=== PATIENT | male | born 1955 | race American Indian/Alaskan Native ===

== ENCOUNTER 2017-06-26 06:57 | Emergency (ER) | payer MEDICAID ==
[2017-06-26 07:03] VITALS: BP 148/96
[2017-06-26] MEDS ORDERED: ULTRAM PO ONE (08:23)
[2017-06-26] MEDS ORDERED: MOTRIN PO ONE (08:23)
--- NOTE | 2017-06-26 08:29 | Emergency Department Report ---
ED Fall HPI - General Chief Complaint: Fall Stated Complaint: FALL Time Seen by Provider: 06/26/17 08:16 Source: patient Mode of arrival: Ambulatory - History of Present Illness Initial Comments: This is a 61-year-old male nontoxic, well nourished in appearance, no acute signs of distress presents to the ED with c/o of right lateral side rib pain status post fall. Patient stated he cannot shower and tripped and landed on his right rib region against the toilet. Patient denies any loss of consciousness or head injuries. Patient denies any chest pain, shortness of breath, fever, chills, nausea, vomiting, headache or stiff neck. Patient denies any numbness or tingling. Patient stated it hurts when he takes a deep breath. Patient states allergies to penicillin with past medical history of hypertension and kidney stones. MD Complaint: fall -: Last night Fall From: standing When Fall Occurred: # days [employer] (1) Fall Witnessed: no Place Fall Occurred: home Loss of Consciousness: none Prolonged Down Time?: no Symptoms Prior to Fall: none Location: chest (right rib region) Severity: mild Severity scale (0 -10): 8 Quality: aching Context: tripped/slipped Associated Symptoms: denies. denies: headache, neck pain, numbness, weakness, chest paint, shortness of breath, abdominal pain, hematuria, unable to walk, lightheaded, vertigo, confusion - Related Data Home Medications Medication Instructions Recorded Confirmed Last Taken amLODIPine [Norvasc] 10 mg PO DAILY 09/30/14 10/01/14 09/30/14 ALPRAZolam [Xanax TAB] 0.5 mg PO BID PRN 10/01/14 10/01/14 09/30/14 HYDROcodone/APAP 10-325 [[place] 1 tab PO PRN PRN 10/01/14 10/01/14 09/30/14 10-325 mg TAB] Losartan/Hydrochlorothiazide 1 tab PO DAILY 10/01/14 10/01/14 09/30/14 [Hyzaar 100-25 TAB] Previous Rx's Medication Instructions Recorded Last Taken Type Albuterol Sulfate [Ventolin HFA] 2 puff IH Q4H PRN #1 hfa.aer.ad 11/22/14 Unknown Rx Azithromycin [Zithromax Z-SHY] 500 mg PO DAILY #1 pkg 11/22/14 Unknown Rx Fluticasone [Flonase] 2 spray NS QDAY #1 bottle 11/22/14 Unknown Rx Promethazine /Codeine 5 ml PO Q6H PRN #150 ml 11/22/14 Unknown Rx [Phenergan/Codeine 6.25-10 mg/5 ml] predniSONE [Deltasone] 20 mg PO QDAY #5 tab 11/22/14 Unknown Rx Acetaminophen/Codeine [Tylenol #3] 1 tab PO Q6H PRN #14 tab 08/25/15 Unknown Rx Cyclobenzaprine [Flexeril] 10 mg PO TID PRN #20 tablet 08/25/15 Unknown Rx Ibuprofen [Motrin] 800 mg PO Q8HR PRN #30 tablet 08/25/15 Unknown Rx Ibuprofen [Motrin] 600 mg PO Q8H PRN #30 tablet 06/26/17 Unknown Rx traMADol [Ultram] 50 mg PO Q6HR PRN #15 tablet 06/26/17 Unknown Rx Allergies Allergy/AdvReac Type Severity Reaction Status Date / Time Penicillins Allergy Hives Verified 10/29/13 14:20 ED Review of Systems ROS: Stated complaint: FALL Other details as noted in HPI Constitutional: denies: chills, fever Eyes: denies: eye pain, eye discharge, vision change ENT: denies: ear pain, throat pain Respiratory: denies: cough, shortness of breath, wheezing Cardiovascular: denies: chest pain, palpitations Endocrine: no symptoms reported Gastrointestinal: denies: abdominal pain, nausea, diarrhea Genitourinary: denies: urgency, dysuria Musculoskeletal: denies: back pain, joint swelling, arthralgia Skin: denies: rash, lesions Neurological: denies: headache, weakness, paresthesias Psychiatric: denies: anxiety, depression Hematological/Lymphatic: denies: easy bleeding, easy bruising ED Past Medical Hx - Past Medical History Previous Medical History?: Yes Hx Hypertension: Yes Hx GERD: No Hx Sickle Cell Disease: No Hx Arthritis: Yes Hx Kidney Stones: Yes Hx Asthma: No Hx HIV: No - Surgical History Past Surgical History?: No Additional Surgical History: Deteriorating disc surgery, Left shoulder surgery, Left knee replacement. - Social History Smoking Status: Never Smoker Substance Use Type: None - Medications Home Medications: Home Medications Medication Instructions Recorded Confirmed Last Taken Type amLODIPine [Norvasc] 10 mg PO DAILY 09/30/14 10/01/14 09/30/14 History ALPRAZolam [Xanax TAB] 0.5 mg PO BID PRN 10/01/14 10/01/14 09/30/14 History HYDROcodone/APAP 10-325 [[place] 1 tab PO PRN PRN 10/01/14 10/01/14 09/30/14 History 10-325 mg TAB] Losartan/Hydrochlorothiazide 1 tab PO DAILY 10/01/14 10/01/14 09/30/14 History [Hyzaar 100-25 TAB] Albuterol Sulfate [Ventolin HFA] 2 puff IH Q4H PRN #1 hfa.aer.ad 11/22/14 Unknown Rx Azithromycin [Zithromax Z-SHY] 500 mg PO DAILY #1 pkg 11/22/14 Unknown Rx Fluticasone [Flonase] 2 spray NS QDAY #1 bottle 11/22/14 Unknown Rx Promethazine /Codeine 5 ml PO Q6H PRN #150 ml 11/22/14 Unknown Rx [Phenergan/Codeine 6.25-10 mg/5 ml] predniSONE [Deltasone] 20 mg PO QDAY #5 tab 11/22/14 Unknown Rx Acetaminophen/Codeine [Tylenol #3] 1 tab PO Q6H PRN #14 tab 08/25/15 Unknown Rx Cyclobenzaprine [Flexeril] 10 mg PO TID PRN #20 tablet 08/25/15 Unknown Rx Ibuprofen [Motrin] 800 mg PO Q8HR PRN #30 tablet 08/25/15 Unknown Rx Ibuprofen [Motrin] 600 mg PO Q8H PRN #30 tablet 06/26/17 Unknown Rx traMADol [Ultram] 50 mg PO Q6HR PRN #15 tablet 06/26/17 Unknown Rx ED Physical Exam - General Limitations: No Limitations General appearance: alert, in no apparent distress - Head Head exam: Present: atraumatic, normocephalic - Eye Eye exam: Present: normal appearance Pupils: Present: normal accommodation - ENT ENT exam: Present: normal exam, mucous membranes moist - Neck Neck exam: Present: normal inspection, full ROM. Absent: tenderness, meningismus, lymphadenopathy, thyromegaly - Respiratory Respiratory exam: Present: normal lung sounds bilaterally, chest wall tenderness (right lateral rib region). Absent: respiratory distress, wheezes, rales, rhonchi, stridor, accessory muscle use, decreased breath sounds, prolonged expiratory - Cardiovascular Cardiovascular Exam: Present: regular rate, normal rhythm, normal heart sounds. Absent: irregular rhythm, systolic murmur, diastolic murmur, rubs, gallop - GI/Abdominal GI/Abdominal exam: Present: soft, normal bowel sounds. Absent: distended, tenderness, guarding, rebound, rigid, diminished bowel sounds - Rectal Rectal exam: Present: deferred - Extremities Exam Extremities exam: Present: normal inspection, full ROM, normal capillary refill - Back Exam Back exam: Present: normal inspection, full ROM. Absent: paraspinal tenderness , vertebral tenderness - Neurological Exam Neurological exam: Present: alert, oriented X3, normal gait - Psychiatric Psychiatric exam: Present: normal affect, normal mood - Skin Skin exam: Present: warm, dry, intact, normal color. Absent: rash ED Course Vital Signs 06/26/17 06/26/17 06/26/17 06:58 07:20 08:28 Temperature 97.8 F 97.8 F Pulse Rate 98 H 93 H Respiratory 18 18 20 Rate Blood Pressure 148/96 148/96 O2 Sat by Pulse 94 99 Oximetry - Reevaluation(s) Reevaluation #1: 06/26/17 08:27 Patient is speaking in full sentences with no signs of distress noted. ED Medical Decision Making - Medical Decision Making This is a 61-year-old male that presents with right rib contusion. Patient is stable and was examined by me. X-ray of chest and rib has been obtained and dictated by the radiologist with 5th and 6th nondisplaced rib fracture. Patient is notified of the x-ray results with no questionable by the patient. Patient received incentive spirometry In the ED and was educated to use it by RN. Patient did receive Ultram and Motrin in the ED which preceded his symptoms are improving subsided. Patient was instructed not to operate any machinery after discharged due to the drowsiness of Ultram and patient stated she would he will have somebody drive patient home. Patient was instructed and referred to Follow-up with a primary care doctor in 3-5 days or if symptoms worsen and continue return to emergency room as soon as possible. At time of discharge, the patient does not seem toxic or ill in appearance. No acute signs of distress noted. Patient agrees to discharge treatment plan of care. No further questions noted by the patient. Critical care attestation.: If time is entered above; I have spent that time in minutes in the direct care of this critically ill patient, excluding procedure time. ED Disposition Clinical Impression: Rib fracture Qualifiers: Encounter type: initial encounter Rib fracture type: multiple ribs Fracture type: closed Laterality: right Qualified Code(s): S22.41XA - Multiple fractures of ribs, right side, initial encounter for closed fracture Disposition: DC- TO HOME OR SELFCARE Is pt being admited?: No Does the pt Need Aspirin: No Condition: Stable Instructions: Rib Fracture (ED), Tramadol (By mouth), Ibuprofen (By mouth), How to Use an Incentive Spirometer (ED) Additional Instructions: Follow-up with a primary care doctor in 3-5 days or if symptoms worsen and continue return to emergency room as soon as possible. Do not operate any machinery after discharge and wonder taking Ultram due to drowsiness. Prescriptions: Ibuprofen [Motrin] 600 mg PO Q8H PRN #30 tablet PRN Reason: Pain traMADol [Ultram] 50 mg PO Q6HR PRN #15 tablet PRN Reason: Pain Referrals: PRIMARY CARE, [Primary Care Provider] - 3-5 Days SEMAJ BYNUM MD [Staff Physician] - 3-5 Days [facility] [Outside] - 3-5 Days [facility] [Outside] - 3-5 Days Forms: Work/School Release Form(ED)
--- NOTE | 2017-06-26 09:32 | XRay Report ---
RIGHT RIBS, 3 VIEWS: History: Rib pain after fall. Subtle nondisplaced right lateral sixth and seventh rib fractures are identified. The remaining ribs are grossly intact. No pleural fluid collection or pneumothorax is appreciated. IMPRESSION: Nondisplaced right lateral sixth and seventh rib fractures.
--- NOTE | 2017-06-26 09:33 | XRay Report ---
ROUTINE CHEST, TWO VIEWS: HISTORY: Right chest pain and swelling. The trachea, heart, mediastinal contour, and lung hinds are unremarkable. Right lateral sixth and seventh rib fractures are not identified on chest x-ray as demonstrated on the rib series performed the same day. IMPRESSION: No acute cardiopulmonary process. Right rib fractures, see above.
== END 2017-06-26 10:13 | disposition home or self-care (01) ==
LOC: ED 06:57
DX: S22.41XA Multiple fractures of ribs, right side, initial encounter for closed fracture (principal); I10 Essential (primary) hypertension; M19.90 Unspecified osteoarthritis, unspecified site; Z87.442 Personal history of urinary calculi; Z96.652 Presence of left artificial knee joint; Z88.0 Allergy status to penicillin; W01.198A Fall on same level from slipping, tripping and stumbling with subsequent striking against other object, initial encounter; Y93.89 Activity, other specified; Y92.89 Other specified places as the place of occurrence of the external cause; Y99.8 Other external cause status
CPT/HCPCS: 71046; 99283

== ENCOUNTER 2018-07-22 19:42 | Emergency (ER) | payer MEDICARE ==
[2018-07-22] MEDS ORDERED: SOLU-Medrol IV ONE (20:42)
[2018-07-22] MEDS ORDERED: BENADRYL IV ONE (20:42)
[2018-07-22] MEDS ORDERED: PEPCID IV ONE (20:42)
--- NOTE | 2018-07-22 20:42 | Emergency Department Report ---
HPI - General Chief Complaint: Allergic Reaction Time Seen by Provider: 07/22/18 20:14 - HPI HPI: 62 y.o. male with history of hypertension on lisinopril therapy presents with complaint of swelling to left side of tongue. Patient states that he noted swelling to his troponin to his lip region. Patient also has a difficulty in breathing. Patient however is able to swallow liquids. Patient states he's been on lisinopril for 2 years. Patient states that he initially noticed the swelling earlier this morning. ED Past Medical Hx - Past Medical History Hx Hypertension: Yes Hx GERD: No Hx Sickle Cell Disease: No Hx Arthritis: Yes Hx Kidney Stones: Yes Hx Asthma: No Hx HIV: No - Surgical History Additional Surgical History: Deteriorating disc surgery, Left shoulder surgery, Left knee replacement. - Social History Smoking Status: Never Smoker Substance Use Type: None - Medications Home Medications: Home Medications Medication Instructions Recorded Confirmed Last Taken Type amLODIPine [Norvasc] 10 mg PO DAILY 09/30/14 10/01/14 09/30/14 History ALPRAZolam [Xanax TAB] 0.5 mg PO BID PRN 10/01/14 10/01/14 09/30/14 History HYDROcodone/APAP 10-325 [[place] 1 tab PO PRN PRN 10/01/14 10/01/14 09/30/14 History 10-325 mg TAB] Losartan/Hydrochlorothiazide 1 tab PO DAILY 10/01/14 10/01/14 09/30/14 History [Hyzaar 100-25 TAB] Albuterol Sulfate [Ventolin HFA] 2 puff IH Q4H PRN #1 hfa.aer.ad 11/22/14 Unknown Rx Azithromycin [Zithromax Z-SHY] 500 mg PO DAILY #1 pkg 11/22/14 Unknown Rx Fluticasone [Flonase] 2 spray NS QDAY #1 bottle 11/22/14 Unknown Rx Promethazine /Codeine 5 ml PO Q6H PRN #150 ml 11/22/14 Unknown Rx [Phenergan/Codeine 6.25-10 mg/5 ml] predniSONE [Deltasone] 20 mg PO QDAY #5 tab 11/22/14 Unknown Rx Acetaminophen/Codeine [Tylenol #3] 1 tab PO Q6H PRN #14 tab 08/25/15 Unknown Rx Cyclobenzaprine [Flexeril] 10 mg PO TID PRN #20 tablet 08/25/15 Unknown Rx Ibuprofen [Motrin] 800 mg PO Q8HR PRN #30 tablet 08/25/15 Unknown Rx Ibuprofen [Motrin] 600 mg PO Q8H PRN #30 tablet 06/26/17 Unknown Rx traMADol [Ultram] 50 mg PO Q6HR PRN #15 tablet 06/26/17 Unknown Rx Famotidine [Pepcid] 20 mg PO BID #60 tablet 07/22/18 Unknown Rx diphenhydrAMINE [Benadryl CAP] 25 mg PO Q6HR #21 capsule 07/22/18 Unknown Rx predniSONE [Deltasone] 40 mg PO QDAY #10 tab 07/22/18 Unknown Rx traMADol [Ultram] 50 mg PO Q6HR PRN #15 tablet 07/22/18 Unknown Rx ED Review of Systems ROS: Stated complaint: TONGUE SWELLING Other details as noted in HPI Constitutional: denies: chills, fever Eyes: denies: eye pain, eye discharge, vision change ENT: other (Swelling in tongue; difficulty swallowing). denies: ear pain, throat pain Respiratory: denies: cough, shortness of breath, wheezing Cardiovascular: denies: chest pain, palpitations Endocrine: no symptoms reported Gastrointestinal: denies: abdominal pain, nausea, diarrhea Genitourinary: denies: urgency, dysuria Musculoskeletal: denies: back pain, joint swelling, arthralgia Skin: denies: rash, lesions Neurological: denies: headache, weakness, paresthesias Psychiatric: denies: anxiety, depression Hematological/Lymphatic: denies: easy bleeding, easy bruising Physical Exam - Physical Exam Physical Exam: Physical Exam: Constitutional: The patient is sitting upright somewhat uncomfortable alert and awake. HEENT shows the presence of swelling to the left lateral aspect of the tongue. No swelling of the lip region. No uvula swelling. Neck: No lymphadenopathy appreciated. Supple. Patient has reproducible tenderness in left SCM reigon with no evidence of erythema. Cardiovascular: S1-S2 and tach no murmurs. Respiratory: Clear to auscultation bilaterally. GI: Positive bowel sounds, soft nontender now 4 quadrants. Neuro cranial nerves II through XII intact, strength is 5 out of 5 bilaterally upper and lower extremities. Psych. Patient, cooperative in no acute distress. ED Medical Decision Making - Lab Data Result diagrams: 07/22/18 21:49 07/22/18 21:49 - Medical Decision Making Patient received SoluMedrol, Benadryl, and Pepcid therapy while in the Emergency Department. Patient initial onset of symptoms was this morning. Patient currently has no obvious evidence of tongue or uvula swelling. Regarding his neck swelling, patient received morphine and Zofran therapy while in the emergency department. Patient had a CT of the neck which shows no acute pathology. Patient states he feels improved. Patient be discharged with prednisone, Benadryl, and Pepcid therapy and Ultram for when necessary pain relief. Pain in the left neck region is likely musculoskeletal in origin with normal CT scan. - Differential Diagnosis angioedema; no retractions; myofascial strain; electrolyte abnormality; ane Critical care attestation.: If time is entered above; I have spent that time in minutes in the direct care of this critically ill patient, excluding procedure time. ED Disposition Clinical Impression: Allergic reaction caused by a drug, Neck pain Disposition: - TO HOME OR SELFCARE Is pt being admited?: No Condition: Stable Instructions: Anaphylaxis (ED), Cervical Sprain (ED) Prescriptions: diphenhydrAMINE [Benadryl CAP] 25 mg PO Q6HR #21 capsule predniSONE [Deltasone] 40 mg PO QDAY #10 tab Famotidine [Pepcid] 20 mg PO BID #60 tablet traMADol [Ultram] 50 mg PO Q6HR PRN #15 tablet PRN Reason: Pain Referrals: [facility] MD LETA [Primary Care Provider] - 3-5 Days Time of Disposition: 00:38 Print Language: MAURITIAN
--- NOTE | 2018-07-22 20:46 | Emergency Department Report ---
HPI - General Chief Complaint: Allergic Reaction Time Seen by Provider: 07/22/18 20:14 ED Past Medical Hx - Past Medical History Hx Hypertension: Yes Hx GERD: No Hx Sickle Cell Disease: No Hx Arthritis: Yes Hx Kidney Stones: Yes Hx Asthma: No Hx HIV: No - Surgical History Additional Surgical History: Deteriorating disc surgery, Left shoulder surgery, Left knee replacement. - Social History Smoking Status: Never Smoker Substance Use Type: None - Medications Home Medications: Home Medications Medication Instructions Recorded Confirmed Last Taken Type amLODIPine [Norvasc] 10 mg PO DAILY 09/30/14 10/01/14 09/30/14 History ALPRAZolam [Xanax TAB] 0.5 mg PO BID PRN 10/01/14 10/01/14 09/30/14 History HYDROcodone/APAP 10-325 [[place] 1 tab PO PRN PRN 10/01/14 10/01/14 09/30/14 History 10-325 mg TAB] Losartan/Hydrochlorothiazide 1 tab PO DAILY 10/01/14 10/01/14 09/30/14 History [Hyzaar 100-25 TAB] Albuterol Sulfate [Ventolin HFA] 2 puff IH Q4H PRN #1 hfa.aer.ad 11/22/14 Unknown Rx Azithromycin [Zithromax Z-SHY] 500 mg PO DAILY #1 pkg 11/22/14 Unknown Rx Fluticasone [Flonase] 2 spray NS QDAY #1 bottle 11/22/14 Unknown Rx Promethazine /Codeine 5 ml PO Q6H PRN #150 ml 11/22/14 Unknown Rx [Phenergan/Codeine 6.25-10 mg/5 ml] predniSONE [Deltasone] 20 mg PO QDAY #5 tab 11/22/14 Unknown Rx Acetaminophen/Codeine [Tylenol #3] 1 tab PO Q6H PRN #14 tab 08/25/15 Unknown Rx Cyclobenzaprine [Flexeril] 10 mg PO TID PRN #20 tablet 08/25/15 Unknown Rx Ibuprofen [Motrin] 800 mg PO Q8HR PRN #30 tablet 08/25/15 Unknown Rx Ibuprofen [Motrin] 600 mg PO Q8H PRN #30 tablet 06/26/17 Unknown Rx traMADol [Ultram] 50 mg PO Q6HR PRN #15 tablet 06/26/17 Unknown Rx ED Review of Systems ROS: Stated complaint: TONGUE SWELLING Other details as noted in HPI Critical care attestation.: If time is entered above; I have spent that time in minutes in the direct care of this critically ill patient, excluding procedure time. ED Disposition Condition: Stable Referrals: SOPHIA CASTORENA MD [Primary Care Provider] - 3-5 Days
[2018-07-22 21:59] LABS: Hematocrit 43.6 % (35.5-45.6); Hemoglobin 14.7 gm/dl (11.8-15.2); Mean Corpuscular HGB Conc 34 % (32-34); Mean Corpuscular Volume 85 fl (84-94); Platelet Count 213 K/mm3 (140-440); Red Blood Count 5.14 M/mm3 (3.65-5.03); Red Cell Distribution Width 15.8 % (13.2-15.2)
[2018-07-22 22:18] LABS: Alanine Aminotransferase 22 units/L (7-56); Albumin 3.9 g/dL (3.9-5); BUN/Creatinine Ratio 14; Blood Urea Nitrogen 11 mg/dL (9-20); Calcium 9.4 mg/dL (8.4-10.2); Hemolysis Index 16
[2018-07-22] MEDS ORDERED: MORPHINE IV ONE (22:18)
[2018-07-22] MEDS ORDERED: ZOFRAN IV ONE (22:19)
[2018-07-22] MEDS ORDERED: ZOFRAN ONE (22:21)
[2018-07-22 22:51] LABS: Basophils % (Manual) 0 % (0.0-1.8); Giant Platelets Few; RBC Morphology Normal; Total Cells Counted 100
[2018-07-22 23:31] VITALS: BP 155/91
--- NOTE | 2018-07-23 00:04 | Cat Scan Report ---
PROCEDURE: CT NECK W CON TECHNIQUE: Routine axial imaging was obtained of the soft tissues of the neck following the intraven ous injection of 100 cc of Omnipaque 300. Sagittal and coronal reconstructions were reviewed. HISTORY: neck pain COMPARISONS: None FINDINGS: There is no evidence of any acute inflammatory or neoplastic process in any compartment of the neck. The airway appears normal. The salivary glands appear normal. The vascular structures reveal calcific ations of both carotid bifurcations. The vocal cords and thyroid gland appear normal. The lung apices reveal emphysematous changes. The retropharyngeal space appears normal. Along the skull base the vis ualized sinuses are clear. The mastoid air cells are well pneumatized. The skeletal structures reveal arthritic changes in the cervical spine. IMPRESSION: No evidence of any acute inflammatory neoplastic process. Mild emphysematous changes in both lung apices. 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 This document is electronically signed by Mino Bedolla MD., July 23 2018 12:02:15 AM ET
== END 2018-07-23 00:59 | disposition home or self-care (01) ==
LOC: ED 19:42
DX: M54.2 Cervicalgia (principal); R06.00 Dyspnea, unspecified; T50.905A Adverse effect of unspecified drugs, medicaments and biological substances, initial encounter; I10 Essential (primary) hypertension; M19.90 Unspecified osteoarthritis, unspecified site; Z87.442 Personal history of urinary calculi; Z88.0 Allergy status to penicillin; Y92.89 Other specified places as the place of occurrence of the external cause
CPT/HCPCS: 36415; 70491; 80053; 85007; 85025; 96374; 96375; 99284; J1200; J2270; J2405; J2930; Q9967

== ENCOUNTER 2018-11-20 01:57 | Emergency (ER) | payer MEDICARE ==
[2018-11-20] MEDS ORDERED: NACL 0.9% 1000 ML 1,000 ML IV ONE (02:33)
[2018-11-20] MEDS ORDERED: TORADOL IV ONE (02:41)
--- NOTE | 2018-11-20 03:12 | XRay Report ---
CHEST 1 VIEW 2:36 AM INDICATION / CLINICAL INFORMATION: Fall with chest pain and right shoulder pain. COMPARISON: 06/26/2017. FINDINGS: SUPPORT DEVICES: None. HEART / MEDIASTINUM: There is mild cardiomegaly with a left ventricular configuration. LUNGS / PLEURA: There is possible nodularity in the left suprahilar region. No pneumothorax. ADDITIONAL FINDINGS: No significant additional findings. IMPRESSION: Possible nodularity in the left suprahilar region. PA and lateral views in the Radiology Department are recommended for further evaluation. Signer Name: Mino West MD Signed: 11/20/2018 3:07 AM Workstation Name: [id number]
[2018-11-20 03:16] LABS: Basophils # (Auto) 0.1 K/mm3 (0.0-0.1); Basophils % (Auto) 0.9 % (0.0-1.8); Eosinophils # (Auto) 0.1 K/mm3 (0.0-0.4); Eosinophils % (Auto) 0.7 % (0.0-4.3); Hematocrit 44.3 % (35.5-45.6); Hemoglobin 14.8 gm/dl (11.8-15.2); Lymphocytes # (Auto) 1.7 K/mm3 (1.2-5.4); Lymphocytes % (Auto) 23.8 % (13.4-35.0); Mean Corpuscular HGB Conc 33 % (32-34); Mean Corpuscular Volume 84 fl (84-94); Monocytes # (Auto) 0.7 K/mm3 (0.0-0.8); Platelet Count 181 K/mm3 (140-440); Red Blood Count 5.25 M/mm3 (3.65-5.03); Red Cell Distribution Width 16.3 % (13.2-15.2)
--- NOTE | 2018-11-20 03:17 | XRay Report ---
RIGHT SHOULDER 3 VIEWS INDICATION / CLINICAL INFORMATION: Fall with right shoulder pain. COMPARISON: None available. FINDINGS: BONES / JOINT(S): There is an acute, comminuted fracture of the right humeral head and neck. No dislo cation is seen. There are mild degenerative changes involving the glenohumeral and acromioclavicular joints. SOFT TISSUES: No significant abnormality. ADDITIONAL FINDINGS: None. IMPRESSION: Acute, comminuted fracture of the right humeral head and neck. Signer Name: Mino West MD Signed: 11/20/2018 3:13 AM Workstation Name: [id number]
[2018-11-20 03:44] LABS: Alanine Aminotransferase 43 units/L (7-56); Albumin 4.2 g/dL (3.9-5); BUN/Creatinine Ratio 14; Blood Urea Nitrogen 10 mg/dL (9-20); Calcium 9.3 mg/dL (8.4-10.2); Hemolysis Index 13
[2018-11-20] MEDS ORDERED: MORPHINE IV ONE (04:01)
[2018-11-20] MEDS ORDERED: NORCO 10/325 PO ONE (05:38)
--- NOTE | 2018-11-20 05:47 | Emergency Department Report ---
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 He c/o severe right shoulder pain, and decrease range of motion in his right shoulder. rates pain at 10/10, sharp, with no alleviating factors. He states movement as an exacerbating factor. MD Complaint: Injury to:: right -: Sudden - Related Data Home Medications Medication Instructions Recorded Confirmed Last Taken amLODIPine [Norvasc] 10 mg PO DAILY 09/30/14 10/01/14 09/30/14 ALPRAZolam [Xanax TAB] 0.5 mg PO BID PRN 10/01/14 10/01/14 09/30/14 HYDROcodone/APAP 10-325 [[place] 1 tab PO PRN PRN 10/01/14 10/01/14 09/30/14 10-325 mg TAB] Losartan/Hydrochlorothiazide 1 tab PO DAILY 10/01/14 10/01/14 09/30/14 [Hyzaar 100-25 TAB] Previous Rx's Medication Instructions Recorded Last Taken Type Albuterol Sulfate [Ventolin HFA] 2 puff IH Q4H PRN #1 hfa.aer.ad 11/22/14 Unknown Rx Azithromycin [Zithromax Z-SHY] 500 mg PO DAILY #1 pkg 11/22/14 Unknown Rx Fluticasone [Flonase] 2 spray NS QDAY #1 bottle 11/22/14 Unknown Rx Promethazine /Codeine 5 ml PO Q6H PRN #150 ml 11/22/14 Unknown Rx [Phenergan/Codeine 6.25-10 mg/5 ml] predniSONE [Deltasone] 20 mg PO QDAY #5 tab 11/22/14 Unknown Rx Acetaminophen/Codeine [Tylenol #3] 1 tab PO Q6H PRN #14 tab 08/25/15 Unknown Rx Cyclobenzaprine [Flexeril] 10 mg PO TID PRN #20 tablet 08/25/15 Unknown Rx Ibuprofen [Motrin] 800 mg PO Q8HR PRN #30 tablet 08/25/15 Unknown Rx Ibuprofen [Motrin] 600 mg PO Q8H PRN #30 tablet 06/26/17 Unknown Rx traMADol [Ultram] 50 mg PO Q6HR PRN #15 tablet 06/26/17 Unknown Rx Famotidine [Pepcid] 20 mg PO BID #60 tablet 07/22/18 Unknown Rx diphenhydrAMINE [Benadryl CAP] 25 mg PO Q6HR #21 capsule 07/22/18 Unknown Rx predniSONE [Deltasone] 40 mg PO QDAY #10 tab 07/22/18 Unknown Rx traMADol [Ultram] 50 mg PO Q6HR PRN #15 tablet 07/22/18 Unknown Rx HYDROcodone/APAP 5-325 [[place] 1 each PO Q6HR PRN #10 tablet 11/20/18 Unknown Rx 5/325] Allergies Allergy/AdvReac Type Severity Reaction Status Date / Time Penicillins Allergy Hives Verified 10/29/13 14:20 ED Review of Systems ROS: Stated complaint: RT SHOULDER PAIN Other details as noted in HPI Comment: All other systems reviewed and negative Endocrine: denies: excessive sweating Gastrointestinal: denies: abdominal pain, nausea Musculoskeletal: joint swelling, arthralgia ED Past Medical Hx - Past Medical History Previous Medical History?: Yes Hx Hypertension: Yes Hx GERD: No Hx Sickle Cell Disease: No Hx Arthritis: Yes Hx Kidney Stones: Yes Hx Asthma: No Hx COPD: Yes Hx HIV: No - Surgical History Past Surgical History?: Yes Additional Surgical History: Deteriorating disc surgery, Left shoulder surgery, Left knee replacement. - Social History Smoking Status: Current Every Day Smoker Substance Use Type: Alcohol - Medications Home Medications: Home Medications Medication Instructions Recorded Confirmed Last Taken Type amLODIPine [Norvasc] 10 mg PO DAILY 09/30/14 10/01/14 09/30/14 History ALPRAZolam [Xanax TAB] 0.5 mg PO BID PRN 10/01/14 10/01/14 09/30/14 History HYDROcodone/APAP 10-325 [[place] 1 tab PO PRN PRN 10/01/14 10/01/14 09/30/14 History 10-325 mg TAB] Losartan/Hydrochlorothiazide 1 tab PO DAILY 10/01/14 10/01/14 09/30/14 History [Hyzaar 100-25 TAB] Albuterol Sulfate [Ventolin HFA] 2 puff IH Q4H PRN #1 hfa.aer.ad 11/22/14 Unknown Rx Azithromycin [Zithromax Z-SHY] 500 mg PO DAILY #1 pkg 11/22/14 Unknown Rx Fluticasone [Flonase] 2 spray NS QDAY #1 bottle 11/22/14 Unknown Rx Promethazine /Codeine 5 ml PO Q6H PRN #150 ml 11/22/14 Unknown Rx [Phenergan/Codeine 6.25-10 mg/5 ml] predniSONE [Deltasone] 20 mg PO QDAY #5 tab 11/22/14 Unknown Rx Acetaminophen/Codeine [Tylenol #3] 1 tab PO Q6H PRN #14 tab 08/25/15 Unknown Rx Cyclobenzaprine [Flexeril] 10 mg PO TID PRN #20 tablet 08/25/15 Unknown Rx Ibuprofen [Motrin] 800 mg PO Q8HR PRN #30 tablet 08/25/15 Unknown Rx Ibuprofen [Motrin] 600 mg PO Q8H PRN #30 tablet 06/26/17 Unknown Rx traMADol [Ultram] 50 mg PO Q6HR PRN #15 tablet 06/26/17 Unknown Rx Famotidine [Pepcid] 20 mg PO BID #60 tablet 07/22/18 Unknown Rx diphenhydrAMINE [Benadryl CAP] 25 mg PO Q6HR #21 capsule 07/22/18 Unknown Rx predniSONE [Deltasone] 40 mg PO QDAY #10 tab 07/22/18 Unknown Rx traMADol [Ultram] 50 mg PO Q6HR PRN #15 tablet 07/22/18 Unknown Rx HYDROcodone/APAP 5-325 [[place] 1 each PO Q6HR PRN #10 tablet 11/20/18 Unknown Rx 5/325] ED Physical Exam - General Limitations: No Limitations, Other General appearance: alert, in no apparent distress - Head Head exam: Present: atraumatic, normocephalic - Eye Eye exam: Present: normal appearance, PERRL, EOMI Pupils: Present: normal accommodation - ENT ENT exam: Present: normal exam - Neck Neck exam: Present: normal inspection - Respiratory Respiratory exam: Present: normal lung sounds bilaterally - Cardiovascular Cardiovascular Exam: Present: regular rate, normal rhythm - GI/Abdominal GI/Abdominal exam: Present: soft, normal bowel sounds - Extremities Exam Extremities exam: Present: tenderness, other (right shoulder tenderness, decrease range of motion, good distal pulses) ED Course Vital Signs 11/20/18 11/20/18 11/20/18 02:19 02:56 05:30 Temperature 97.9 F Pulse Rate 78 Respiratory 25 H 25 H 12 Rate Blood Pressure 142/81 155/84 O2 Sat by Pulse 85 91 93 Oximetry 11/20/18 06:00 Temperature Pulse Rate Respiratory 19 Rate Blood Pressure 167/93 O2 Sat by Pulse 90 Oximetry ED Medical Decision Making - Lab Data Result diagrams: 11/20/18 02:51 11/20/18 02:51 Critical care attestation.: If time is entered above; I have spent that time in minutes in the direct care of this critically ill patient, excluding procedure time. ED Disposition Clinical Impression: Fracture of humeral head, right, closed Qualifiers: Encounter type: initial encounter Qualified Code(s): S42.291A - Other displaced fracture of upper end of right humerus, initial encounter for closed fracture Fracture of neck of right humerus Qualifiers: Encounter type: initial encounter Fracture type: closed Qualified Code(s): S42.211A - Unspecified displaced fracture of surgical neck of right humerus, initial encounter for closed fracture Disposition: DC-01 TO HOME OR SELFCARE Is pt being admited?: No Does the pt Need Aspirin: No Condition: Stable Instructions: Arm Fracture in Adults (ED) Prescriptions: HYDROcodone/APAP 5-325 [[place] 5/325] 1 each PO Q6HR PRN #10 tablet PRN Reason: Pain [facility] Care Provider[facility] - 3-5 Days WILBERT DOAN MD [Staff Physician] - 3-5 Days
--- NOTE | 2018-11-20 06:03 | XRay Report ---
RIGHT ELBOW 3 VIEWS INDICATION / CLINICAL INFORMATION: Fall with right elbow pain. COMPARISON: None available. FINDINGS: BONES / JOINT(S): Images are suboptimal due to the patient's inability to cooperate with positioning. No significant arthritis. I see no evidence of fracture or dislocation. SOFT TISSUES: No significant abnormality. ADDITIONAL FINDINGS: None. IMPRESSION: Negative limited study. Signer Name: Mino West MD Signed: 11/20/2018 5:58 AM Workstation Name: [id number]
[2018-11-20 06:10] VITALS: BP 167/93
[2018-11-20 06:47] LABS: Amphetamine Screen,Urine PRESUMPTIVE NEGATIVE; Benzodiazepines Screen,Urine PRESUMPTIVE NEGATIVE; Cannabinoid Screen,Urine PRESUMPTIVE NEGATIVE; Cocaine Screen,Urine PRESUMPTIVE NEGATIVE; Methadone Screen,Urine PRESUMPTIVE NEGATIVE
[2018-11-20 07:08] LABS: Opiate Screen,Urine PRESUMPTIVE NEGATIVE
== END 2018-11-20 06:45 | disposition home or self-care (01) ==
LOC: ED 01:57
DX: S42.291A Other displaced fracture of upper end of right humerus, initial encounter for closed fracture (principal); S42.211A Unspecified displaced fracture of surgical neck of right humerus, initial encounter for closed fracture; I10 Essential (primary) hypertension; J44.9 Chronic obstructive pulmonary disease, unspecified; M19.90 Unspecified osteoarthritis, unspecified site; F17.200 Nicotine dependence, unspecified, uncomplicated; Z88.0 Allergy status to penicillin; Z79.899 Other long term (current) drug therapy; Z79.1 Long term (current) use of non-steroidal anti-inflammatories (NSAID); Z87.442 Personal history of urinary calculi; Z96.652 Presence of left artificial knee joint; W01.198A Fall on same level from slipping, tripping and stumbling with subsequent striking against other object, initial encounter; Y93.89 Activity, other specified; Y92.89 Other specified places as the place of occurrence of the external cause; Y99.8 Other external cause status
CPT/HCPCS: 36415; 71045; 73030; 73080; 80053; 80307; 85025; 96374; 96375; 99284; J1885; J2270; J7030; 80320; G0480

== ENCOUNTER 2020-09-26 09:39 | Emergency (ER) | payer MEDICARE ==
[2020-09-26 10:15] VITALS: BP 150/71
[2020-09-26] MEDS ORDERED: KETOROLAC 30 MG/1 ML INJ IV ONE (10:58)
[2020-09-26] MEDS ORDERED: dexAMETHasone 20 MG/5 ML VIAL IV ONE (10:58)
--- NOTE | 2020-09-26 11:05 | Emergency Department Report ---
ED Extremity Problem HPI - General Chief complaint: Extremity Problem,Nontraumatic Stated complaint: PAIN IN BOTH SHOULDERS/RT KNEE Time Seen by Provider: 09/26/20 10:57 Source: patient Mode of arrival: Ambulatory Limitations: No Limitations - History of Present Illness Initial comments: 65-year-old obese -Tajik male with a history of arthritis hypertension and a surgical history of left shoulder and left knee replacement presents to the emergency room stating that his arthritis has been flaring up in the last week. Patient states has been suffering from arthritis for the last 10 years. Patient states that his pain medication is not helping. Patient reports that he is followed by Dr. Davis. He denies any new trauma. Patient states he feels like his right knee is swollen. Patient is currently been taking Lortab for his pain and states it does not help. MD Complaint: joint paint Onset/Timin -: week(s) Location: left, right, upper extremity, lower extremity, knee History of Same: Yes Severity scale (0 -10): 10 Quality: stabbing, aching Consistency: constant Improves with: nothing Worsens with: nothing Associated Symptoms: denies other symptoms - Related Data Home Medications Medication Instructions Recorded Confirmed Last Taken amLODIPine [Norvasc] 10 mg PO DAILY 09/30/14 10/01/14 09/30/14 ALPRAZolam [Xanax TAB] 0.5 mg PO BID PRN 10/01/14 10/01/14 09/30/14 HYDROcodone/APAP 10-325 [[place] 1 tab PO PRN PRN 10/01/14 10/01/14 09/30/14 10-325 mg TAB] Losartan/Hydrochlorothiazide 1 tab PO DAILY 10/01/14 10/01/14 09/30/14 [Hyzaar 100-25 TAB] Previous Rx's Medication Instructions Recorded Last Taken Type Albuterol Sulfate [Ventolin HFA] 2 puff IH Q4H PRN #1 hfa.aer.ad 11/22/14 Unknown Rx Azithromycin [Zithromax Z-SHY] 500 mg PO DAILY #1 pkg 11/22/14 Unknown Rx Fluticasone [Flonase] 2 spray NS QDAY #1 bottle 11/22/14 Unknown Rx Promethazine /Codeine 5 ml PO Q6H PRN #150 ml 11/22/14 Unknown Rx [Phenergan/Codeine 6.25-10 mg/5 ml] predniSONE [Deltasone] 20 mg PO QDAY #5 tab 11/22/14 Unknown Rx Acetaminophen/Codeine [Tylenol #3] 1 tab PO Q6H PRN #14 tab 08/25/15 Unknown Rx Cyclobenzaprine [Flexeril] 10 mg PO TID PRN #20 tablet 08/25/15 Unknown Rx Ibuprofen [Motrin] 800 mg PO Q8HR PRN #30 tablet 08/25/15 Unknown Rx Ibuprofen [Motrin] 600 mg PO Q8H PRN #30 tablet 06/26/17 Unknown Rx traMADoL [Ultram] 50 mg PO Q6HR PRN #15 tablet 06/26/17 Unknown Rx Famotidine [Pepcid] 20 mg PO BID #60 tablet 07/22/18 Unknown Rx diphenhydrAMINE [Benadryl CAP] 25 mg PO Q6HR #21 capsule 07/22/18 Unknown Rx predniSONE [Deltasone] 40 mg PO QDAY #10 tab 07/22/18 Unknown Rx traMADoL [Ultram] 50 mg PO Q6HR PRN #15 tablet 07/22/18 Unknown Rx HYDROcodone/APAP 5-325 [[place] 1 each PO Q6HR PRN #10 tablet 11/20/18 Unknown Rx 5/325] Meloxicam [Mobic] 15 mg PO QDAY #30 tablet 09/26/20 Unknown Rx predniSONE [Deltasone] 20 mg PO QDAY 5 Days #5 tab 09/26/20 Unknown Rx Allergies Allergy/AdvReac Type Severity Reaction Status Date / Time Penicillins Allergy Hives Verified 10/29/13 14:20 ED Review of Systems ROS: Stated complaint: PAIN IN BOTH SHOULDERS/RT KNEE Other details as noted in HPI Comment: All other systems reviewed and negative ED Past Medical Hx - Past Medical History Previous Medical History?: Yes Hx Hypertension: Yes Hx GERD: No Hx Sickle Cell Disease: No Hx Arthritis: Yes Hx Kidney Stones: Yes Hx Asthma: No Hx COPD: Yes Hx HIV: No - Surgical History Past Surgical History?: Yes Additional Surgical History: Deteriorating disc surgery, Left shoulder surgery, Left knee replacement. - Social History Smoking Status: Current Every Day Smoker Substance Use Type: Alcohol - Medications Home Medications: Home Medications Medication Instructions Recorded Confirmed Last Taken Type amLODIPine [Norvasc] 10 mg PO DAILY 09/30/14 10/01/14 09/30/14 History ALPRAZolam [Xanax TAB] 0.5 mg PO BID PRN 10/01/14 10/01/14 09/30/14 History HYDROcodone/APAP 10-325 [[place] 1 tab PO PRN PRN 10/01/14 10/01/14 09/30/14 History 10-325 mg TAB] Losartan/Hydrochlorothiazide 1 tab PO DAILY 10/01/14 10/01/14 09/30/14 History [Hyzaar 100-25 TAB] Albuterol Sulfate [Ventolin HFA] 2 puff IH Q4H PRN #1 hfa.aer.ad 11/22/14 Unknown Rx Azithromycin [Zithromax Z-SHY] 500 mg PO DAILY #1 pkg 11/22/14 Unknown Rx Fluticasone [Flonase] 2 spray NS QDAY #1 bottle 11/22/14 Unknown Rx Promethazine /Codeine 5 ml PO Q6H PRN #150 ml 11/22/14 Unknown Rx [Phenergan/Codeine 6.25-10 mg/5 ml] predniSONE [Deltasone] 20 mg PO QDAY #5 tab 11/22/14 Unknown Rx Acetaminophen/Codeine [Tylenol #3] 1 tab PO Q6H PRN #14 tab 08/25/15 Unknown Rx Cyclobenzaprine [Flexeril] 10 mg PO TID PRN #20 tablet 08/25/15 Unknown Rx Ibuprofen [Motrin] 800 mg PO Q8HR PRN #30 tablet 08/25/15 Unknown Rx Ibuprofen [Motrin] 600 mg PO Q8H PRN #30 tablet 06/26/17 Unknown Rx traMADoL [Ultram] 50 mg PO Q6HR PRN #15 tablet 06/26/17 Unknown Rx Famotidine [Pepcid] 20 mg PO BID #60 tablet 07/22/18 Unknown Rx diphenhydrAMINE [Benadryl CAP] 25 mg PO Q6HR #21 capsule 07/22/18 Unknown Rx predniSONE [Deltasone] 40 mg PO QDAY #10 tab 07/22/18 Unknown Rx traMADoL [Ultram] 50 mg PO Q6HR PRN #15 tablet 07/22/18 Unknown Rx HYDROcodone/APAP 5-325 [[place] 1 each PO Q6HR PRN #10 tablet 11/20/18 Unknown Rx 5/325] Meloxicam [Mobic] 15 mg PO QDAY #30 tablet 09/26/20 Unknown Rx predniSONE [Deltasone] 20 mg PO QDAY 5 Days #5 tab 09/26/20 Unknown Rx ED Physical Exam - General Limitations: No Limitations General appearance: alert, in no apparent distress, obese - Head Head exam: Present: atraumatic, normocephalic - Eye Eye exam: Present: normal appearance - ENT ENT exam: Present: mucous membranes moist - Neck Neck exam: Present: normal inspection, full ROM - Respiratory Respiratory exam: Absent: accessory muscle use - Cardiovascular Cardiovascular Exam: Present: regular rate - Extremities Exam Extremities exam: Present: full ROM - Expanded Upper Extremity Exam Left Shoulder Exam: Present: normal inspection, full ROM Upper Arm exam: Present: normal inspection Elbow exam: Present: normal inspection Forearm Wrist exam: Present: normal inspection, full ROM, tenderness Hand Wrist exam: Present: normal inspection Right Shoulder Exam: Present: normal inspection, full ROM. Absent: tenderness Upper Arm exam: Present: normal inspection, full ROM. Absent: tenderness Elbow exam: Present: normal inspection. Absent: full ROM Forearm Wrist exam: Present: normal inspection Hand Wrist exam: Present: normal inspection, full ROM - Expanded Lower Extremity Exam Right Hip exam: Present: normal inspection, full ROM Upper Leg exam: Present: normal inspection, full ROM Knee exam: Present: full ROM, swelling. Absent: tenderness, erythema, effusion Lower Leg exam: Present: normal inspection, full ROM Ankle exam: Present: normal inspection, full ROM Foot/Toe exam: Present: normal inspection, full ROM Neuro vascular tendon exam: Present: no vascular compromise Gait: Positive: observed and normal (Uses a cane) - Back Exam Back exam: Present: full ROM - Neurological Exam Neurological exam: Present: alert, oriented X3 - Psychiatric Psychiatric exam: Present: normal affect, normal mood - Skin Skin exam: Present: warm, dry, intact, normal color. Absent: rash ED Course Vital Signs 09/26/20 10:14 Temperature 98.4 F Pulse Rate 89 Respiratory 15 Rate Blood Pressure 150/71 O2 Sat by Pulse 95 Oximetry ED Medical Decision Making - Medical Decision Making 65-year-old obese -Tajik male with a history of arthritis hypertension and a surgical history of left shoulder and left knee replacement presents to the emergency room stating that his arthritis has been flaring up in the last week. Patient states has been suffering from arthritis for the last 10 years. Patient states that his pain medication is not helping. Patient reports that he is followed by Dr. Davis. He denies any new trauma. Patient states he feels like his right knee is swollen. Patient is currently been taking Lortab for his pain and states it does not help. Patient was given a Toradol injection 30 mg dexamethasone 10 mg IM. Patient will be discharged home on meloxicam 15 mg daily and a referral to arthritis specialist. Critical care attestation.: If time is entered above; I have spent that time in minutes in the direct care of this critically ill patient, excluding procedure time. ED Disposition Clinical Impression: Chronic arthritis Disposition: DC-01 TO HOME OR SELFCARE Is pt being admited?: No Does the pt Need Aspirin: No Condition: Stable Instructions: Arthritis, [id number] Additional Instructions: Please follow-up with janitorial supervisor I have located 1 below for your convenience. Also you can take the meloxicam which is a little safer in its use for treating arthritis. It prevents GI bleeds. Take the prednisone for the next 5 days and follow-up with your primary care provider. Prescriptions: predniSONE [Deltasone] 20 mg PO QDAY 5 Days #5 tab Meloxicam [Mobic] 15 mg PO QDAY #30 tablet Referrals: Arthritis, rheumatology clinic [Other] - 3-5 Days
[2020-09-26] MEDS ORDERED: dexAMETHasone 20 MG/5 ML VIAL IM ONE (11:27)
[2020-09-26] MEDS ORDERED: KETOROLAC 30 MG/1 ML INJ IM ONE (11:27)
== END 2020-09-26 11:36 | disposition home or self-care (01) ==
LOC: ED 09:39
DX: M19.012 Primary osteoarthritis, left shoulder (principal); M19.011 Primary osteoarthritis, right shoulder; M17.11 Unilateral primary osteoarthritis, right knee; G89.29 Other chronic pain; F17.200 Nicotine dependence, unspecified, uncomplicated; I10 Essential (primary) hypertension; Z79.899 Other long term (current) drug therapy; Z88.0 Allergy status to penicillin; Z98.890 Other specified postprocedural states
CPT/HCPCS: 96372; 99281; J1100; J1885

== ENCOUNTER 2021-06-08 11:16 | Emergency (ER) | payer MEDICARE ==
--- NOTE | 2021-06-08 14:39 | Emergency Department Report ---
ED Rash HPI - HPI Chief Complaint: Skin Rash Stated Complaint: SPOT ON BACK Time Seen by Provider: 06/08/21 14:10 Duration: 2 Days Location: Back Suspected Cause: Unknown Rash Symptoms: Yes Itching, No Facial Swelling, No Tongue/Oral Swelling, No Breathing Difficulties, No Choking Sensation, No Wheezing/Dyspnea, No Peeling, No Blistering, No Fever, No Lightheaded, No Malaise, No Myalgias Severity: mild Other History: 65 year old male presents to ED with complaints of dry rough rash to lower back. He states he noticed it about couple days ago. he describes it as itching and burning. he denies any swelling or drainage. He denies any new meds, soaps, lotions or any other new contacts. He denies similar symptoms in past. He denies any other symptoms. ED Review of Systems ROS: Stated complaint: SPOT ON BACK Other details as noted in HPI Comment: All other systems reviewed and negative Skin: rash ED Past Medical Hx - Past Medical History Previous Medical History?: Yes Hx Hypertension: Yes Hx GERD: No Hx Sickle Cell Disease: No Hx Arthritis: Yes Hx Kidney Stones: Yes Hx Asthma: No Hx COPD: Yes Hx HIV: No - Surgical History Past Surgical History?: Yes Additional Surgical History: Deteriorating disc surgery, Left shoulder surgery, Left knee replacement. - Social History Smoking Status: Current Every Day Smoker Substance Use Type: Alcohol - Medications Home Medications: Home Medications Medication Instructions Recorded Confirmed Last Taken Type amLODIPine [Norvasc] 10 mg PO DAILY 09/30/14 10/01/14 09/30/14 History ALPRAZolam [Xanax TAB] 0.5 mg PO BID PRN 10/01/14 10/01/14 09/30/14 History HYDROcodone/APAP 10-325 [[place] 1 tab PO PRN PRN 10/01/14 10/01/14 09/30/14 History 10-325 mg TAB] Losartan/Hydrochlorothiazide 1 tab PO DAILY 10/01/14 10/01/14 09/30/14 History [Hyzaar 100-25 TAB] Albuterol Sulfate [Ventolin HFA] 2 puff IH Q4H PRN #1 hfa.aer.ad 11/22/14 Unknown Rx Azithromycin [Zithromax Z-SHY] 500 mg PO DAILY #1 pkg 11/22/14 Unknown Rx Fluticasone [Flonase] 2 spray NS QDAY #1 bottle 11/22/14 Unknown Rx Promethazine /Codeine 5 ml PO Q6H PRN #150 ml 11/22/14 Unknown Rx [Phenergan/Codeine 6.25-10 mg/5 ml] predniSONE [Deltasone] 20 mg PO QDAY #5 tab 11/22/14 Unknown Rx Acetaminophen/Codeine [Tylenol #3] 1 tab PO Q6H PRN #14 tab 08/25/15 Unknown Rx Cyclobenzaprine [Flexeril] 10 mg PO TID PRN #20 tablet 08/25/15 Unknown Rx Ibuprofen [Motrin] 800 mg PO Q8HR PRN #30 tablet 08/25/15 Unknown Rx Ibuprofen [Motrin] 600 mg PO Q8H PRN #30 tablet 06/26/17 Unknown Rx traMADoL [Ultram] 50 mg PO Q6HR PRN #15 tablet 06/26/17 Unknown Rx Famotidine [Pepcid] 20 mg PO BID #60 tablet 07/22/18 Unknown Rx diphenhydrAMINE [Benadryl CAP] 25 mg PO Q6HR #21 capsule 07/22/18 Unknown Rx predniSONE [Deltasone] 40 mg PO QDAY #10 tab 07/22/18 Unknown Rx traMADoL [Ultram] 50 mg PO Q6HR PRN #15 tablet 07/22/18 Unknown Rx HYDROcodone/APAP 5-325 [[place] 1 each PO Q6HR PRN #10 tablet 11/20/18 Unknown Rx 5/325] Meloxicam [Mobic] 15 mg PO QDAY #30 tablet 09/26/20 Unknown Rx predniSONE [Deltasone] 20 mg PO QDAY 5 Days #5 tab 09/26/20 Unknown Rx Triamcinolone 0.1% [Kenalog 0.1% 1 applic TP BID 7 Days #1 tube 06/08/21 Unknown Rx CREAM] Rash Exam - Exam General: Vital signs noted. No distress. Alert and acting appropriately. HEENT: No Periorbital Edema, No Conjuctival Injection, No Chemosis, No Perioral Edema, No Tongue Edema, No Uvular Edema, No Compromised Airway, No Drooling Lungs: Yes Good Air Exchange, No Wheezes, No Ronchi, No Stridor, No Cough, No Labored Respirations, No Retractions, No Use of Accessory Muscles, No Other Abnormal Lung Sounds Heart: Yes Regular, No Murmur Skin: Yes Maculopapular Rash (hyperpigmented dry flaky rash noted lower back. No ttp. no swelling, induration or fluctuance noted. ), No Urticarial Rash, No Morbilliform rash, No Bulla(e), No Excoriations, No Weeping, No Tenderness, No Erythema, No Edema, No Encrustations, No Other Other: Positive: Abdomen Normal, Neurologic Normal, Musculoskeletal Normal ED Course Vital Signs 06/08/21 11:39 Temperature 97.6 F Pulse Rate 94 H Respiratory 16 Rate Blood Pressure 156/82 [Left] O2 Sat by Pulse 95 Oximetry Critical care attestation.: If time is entered above; I have spent that time in minutes in the direct care of this critically ill patient, excluding procedure time. ED Disposition Clinical Impression: Contact dermatitis Disposition: HOME / SELF CARE / HOMELESS Is pt being admited?: No Does the pt Need Aspirin: No Condition: Stable Instructions: Contact Dermatitis, [id number] Additional Instructions: Use the triamcinolone cream as prescribed. Try not to seat or lay on back for long periods. Keep area moisturized using a good moisturizing cream from over the counter like lubriderm, cerave, Eucerin creams. Follow up closely with PCP. Return to ED if worse. Prescriptions: Triamcinolone 0.1% [Kenalog 0.1% CREAM] 1 applic TP BID 7 Days #1 tube Referrals: PRIMARY CAREMD [Referring] - 3-5 Days Time of Disposition: 14:40
[2021-06-08 15:33] VITALS: BP 127/70
== END 2021-06-08 15:33 | disposition home or self-care (01) ==
LOC: ED 11:16
DX: L25.9 Unspecified contact dermatitis, unspecified cause (principal); I10 Essential (primary) hypertension; M19.90 Unspecified osteoarthritis, unspecified site; N20.0 Calculus of kidney; J44.9 Chronic obstructive pulmonary disease, unspecified; F17.200 Nicotine dependence, unspecified, uncomplicated; Z79.899 Other long term (current) drug therapy; Z98.890 Other specified postprocedural states
CPT/HCPCS: 99282

== ENCOUNTER 2021-08-14 23:17 | Inpatient (IN) | payer MEDICARE ==
[2021-08-14] MEDS ORDERED: NITROGLYCERIN 0.4 MG TAB SUBL SL ONE (23:30)
--- NOTE | 2021-08-14 23:36 | Emergency Department Report ---
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 Denies leg swelling, pain in his calves, recent travel, immobilization, surgery, hospitalization, sex HRT use. - Related Data Home Medications Medication Instructions Recorded Confirmed Last Taken amLODIPine [Norvasc] 10 mg PO DAILY 09/30/14 10/01/14 09/30/14 ALPRAZolam [Xanax TAB] 0.5 mg PO BID PRN 10/01/14 10/01/14 09/30/14 HYDROcodone/APAP 10-325 [[place] 1 tab PO PRN PRN 10/01/14 10/01/14 09/30/14 10-325 mg TAB] Losartan/Hydrochlorothiazide 1 tab PO DAILY 10/01/14 10/01/14 09/30/14 [Hyzaar 100-25 TAB] Previous Rx's Medication Instructions Recorded Last Taken Type Albuterol Sulfate [Ventolin HFA] 2 puff IH Q4H PRN #1 hfa.aer.ad 11/22/14 Unknown Rx Azithromycin [Zithromax Z-SHY] 500 mg PO DAILY #1 pkg 11/22/14 Unknown Rx Fluticasone [Flonase] 2 spray NS QDAY #1 bottle 11/22/14 Unknown Rx Promethazine /Codeine 5 ml PO Q6H PRN #150 ml 11/22/14 Unknown Rx [Phenergan/Codeine 6.25-10 mg/5 ml] predniSONE [Deltasone] 20 mg PO QDAY #5 tab 11/22/14 Unknown Rx Acetaminophen/Codeine [Tylenol #3] 1 tab PO Q6H PRN #14 tab 08/25/15 Unknown Rx Cyclobenzaprine [Flexeril] 10 mg PO TID PRN #20 tablet 08/25/15 Unknown Rx Ibuprofen [Motrin] 800 mg PO Q8HR PRN #30 tablet 08/25/15 Unknown Rx Ibuprofen [Motrin] 600 mg PO Q8H PRN #30 tablet 06/26/17 Unknown Rx traMADoL [Ultram] 50 mg PO Q6HR PRN #15 tablet 06/26/17 Unknown Rx Famotidine [Pepcid] 20 mg PO BID #60 tablet 07/22/18 Unknown Rx diphenhydrAMINE [Benadryl CAP] 25 mg PO Q6HR #21 capsule 07/22/18 Unknown Rx predniSONE [Deltasone] 40 mg PO QDAY #10 tab 07/22/18 Unknown Rx traMADoL [Ultram] 50 mg PO Q6HR PRN #15 tablet 07/22/18 Unknown Rx HYDROcodone/APAP 5-325 [[place] 1 each PO Q6HR PRN #10 tablet 11/20/18 Unknown Rx 5/325] Meloxicam [Mobic] 15 mg PO QDAY #30 tablet 09/26/20 Unknown Rx predniSONE [Deltasone] 20 mg PO QDAY 5 Days #5 tab 09/26/20 Unknown Rx Triamcinolone 0.1% [Kenalog 0.1% 1 applic TP BID 7 Days #1 tube 06/08/21 Unknown Rx CREAM] Allergies Allergy/AdvReac Type Severity Reaction Status Date / Time Penicillins Allergy Hives Verified 10/29/13 14:20 ED Review of Systems ROS: Stated complaint: CHEST PAIN Other details as noted in HPI Comment: All other systems reviewed and negative Constitutional: denies: chills, fever ED Past Medical Hx - Past Medical History Hx Hypertension: Yes Hx GERD: No Hx Sickle Cell Disease: No Hx Arthritis: Yes Hx Kidney Stones: Yes Hx Asthma: No Hx COPD: Yes Hx HIV: No - Surgical History Additional Surgical History: Deteriorating disc surgery, Left shoulder surgery, Left knee replacement. - Social History Smoking Status: Current Every Day Smoker Substance Use Type: Alcohol - Medications Home Medications: Home Medications Medication Instructions Recorded Confirmed Last Taken Type amLODIPine [Norvasc] 10 mg PO DAILY 09/30/14 10/01/14 09/30/14 History ALPRAZolam [Xanax TAB] 0.5 mg PO BID PRN 10/01/14 10/01/14 09/30/14 History HYDROcodone/APAP 10-325 [[place] 1 tab PO PRN PRN 10/01/14 10/01/14 09/30/14 History 10-325 mg TAB] Losartan/Hydrochlorothiazide 1 tab PO DAILY 07/05/1710/01/14 09/30/14 History [Hyzaar 100-25 TAB] Albuterol Sulfate [Ventolin HFA] 2 puff IH Q4H PRN #1 hfa.aer.ad 11/22/14 Unknown Rx Azithromycin [Zithromax Z-SHY] 500 mg PO DAILY #1 pkg 11/22/14 Unknown Rx Fluticasone [Flonase] 2 spray NS QDAY #1 bottle 11/22/14 Unknown Rx Promethazine /Codeine 5 ml PO Q6H PRN #150 ml 11/22/14 Unknown Rx [Phenergan/Codeine 6.25-10 mg/5 ml] predniSONE [Deltasone] 20 mg PO QDAY #5 tab 11/22/14 Unknown Rx Acetaminophen/Codeine [Tylenol #3] 1 tab PO Q6H PRN #14 tab 08/25/15 Unknown Rx Cyclobenzaprine [Flexeril] 10 mg PO TID PRN #20 tablet 08/25/15 Unknown Rx Ibuprofen [Motrin] 800 mg PO Q8HR PRN #30 tablet 08/25/15 Unknown Rx Ibuprofen [Motrin] 600 mg PO Q8H PRN #30 tablet 06/26/17 Unknown Rx traMADoL [Ultram] 50 mg PO Q6HR PRN #15 tablet 06/26/17 Unknown Rx Famotidine [Pepcid] 20 mg PO BID #60 tablet 07/22/18 Unknown Rx diphenhydrAMINE [Benadryl CAP] 25 mg PO Q6HR #21 capsule 07/22/18 Unknown Rx predniSONE [Deltasone] 40 mg PO QDAY #10 tab 07/22/18 Unknown Rx traMADoL [Ultram] 50 mg PO Q6HR PRN #15 tablet 07/22/18 Unknown Rx HYDROcodone/APAP 5-325 [[place] 1 each PO Q6HR PRN #10 tablet 11/20/18 Unknown Rx 5/325] Meloxicam [Mobic] 15 mg PO QDAY #30 tablet 09/26/20 Unknown Rx predniSONE [Deltasone] 20 mg PO QDAY 5 Days #5 tab 09/26/20 Unknown Rx Triamcinolone 0.1% [Kenalog 0.1% 1 applic TP BID 7 Days #1 tube 06/08/21 Unknown Rx CREAM] ED Physical Exam - General Limitations: No Limitations General appearance: alert, in no apparent distress - Head Head exam: Present: atraumatic, normocephalic - Eye Eye exam: Present: PERRL, EOMI - ENT ENT exam: Present: mucous membranes moist, other (airway patent) - Neck Neck exam: Present: other (supple; no JVD) - Respiratory Respiratory exam: Present: other (good air entry, nml I:E, CTAB, no use of MILIND) - Cardiovascular Cardiovascular Exam: Present: regular rate. Absent: rubs, gallop - GI/Abdominal GI/Abdominal exam: Present: soft, normal bowel sounds. Absent: distended, tenderness - Extremities Exam Extremities exam: Present: other (no lower extremity edema; non tender calves; neg Jabier's sign bilaterally) - Back Exam Back exam: Present: full ROM. Absent: tenderness - Neurological Exam Neurological exam: Present: alert, oriented X3, CN II-XII intact. Absent: motor sensory deficit - Skin Skin exam: Present: warm, normal color ED Course Vital Signs 08/14/21 08/15/21 08/15/21 23:55 00:00 00:08 Temperature 98 F Pulse Rate 109 H 110 H 120 H Respiratory 13 18 Rate Blood Pressure 154/78 134/76 Blood Pressure 134/76 [Right] O2 Sat by Pulse 94 100 Oximetry ED Medical Decision Making - Lab Data Result diagrams: 08/14/21 23:39 08/14/21 23:39 Laboratory Tests 08/14/21 08/14/21 08/14/21 23:39 23:39 23:39 WBC 7.3 RBC 5.51 H Hgb 15.8 H Hct 48.3 H MCV 88 MCH 29 MCHC 33 RDW 15.6 H Plt Count 185 [place] % (Auto) [employer] PT 13.2 INR 0.91 APTT 25.8 Sodium 138 Potassium 3.6 Chloride 98.7 Carbon Dioxide 19 L Anion Gap 24 BUN 21 H Creatinine 0.9 Estimated GFR > 60 BUN/Creatinine Ratio 23 Glucose 153 H Calcium 10.9 H Total Bilirubin 0.60 AST 70 H ALT 43 Alkaline Phosphatase 42 Troponin T 0.348 H* Total Protein 7.9 Albumin 4.4 Albumin/Globulin Ratio 1.3 CXR: no acute cardiopulmonary process EKG @ 23:19-> HR 108, A fib, narrow QRS, minimal ST elevations with pathological q waves in III, aVF and minimal reciprocal ST/J point depressions in I, aVL and V2 (Dr. Marquis [provisioning analyst regional loss prevention manager] called immediately with picture of EKG sent to him; he recommends that patient does not meet criteria for STEMI @ this time) - Medical Decision Making Diff dz: likely 2/2 STEMI in evolution. Pneumonia, pneumothorax, anemia ruled out. PE unlikely. Dr. Marquis [provisioning analyst regional loss prevention manager] called immediately with picture of EKG sent to him; he recommends that patient does not meet criteria for STEMI @ this time) Received aspirin 324 mg PO x 1 by EMS en route to ED. Received Plavix 300 mg PO x 1, NTG 0.4 mg SL x 1, heparin 4,000 units IV x 1, then gtt Critical care time in (mins) excluding proc time.: 45 Critical care attestation.: If time is entered above; I have spent that time in minutes in the direct care of this critically ill patient, excluding procedure time. ED Disposition Clinical Impression: Chest pain, Elevated troponin, Abnormal EKG Disposition: ADMITTED INPATIENT Is pt being admited?: Yes Does the pt Need Aspirin: No Condition: Stable Time of Disposition: 00:30 (Patient admitted to Dr. Golden. Sign out was given by me to him. )
[2021-08-15 00:19] LABS: Hematocrit 48.3 % (35.5-45.6); Hemoglobin 15.8 gm/dl (11.8-15.2); Mean Corpuscular HGB Conc 33 % (32-34); Mean Corpuscular Volume 88 fl (84-94); Platelet Count 185 K/mm3 (140-440); Red Blood Count 5.51 M/mm3 (3.65-5.03); Red Cell Distribution Width 15.6 % (13.2-15.2)
--- NOTE | 2021-08-15 00:24 | XRay Report ---
XR chest 1V ap INDICATION / CLINICAL INFORMATION: Chest pain. COMPARISON: 11/20/2018 FINDINGS: SUPPORT DEVICES: None. HEART /PULMONARY VASCULATURE: No significant abnormality. LUNGS / PLEURA: No significant pulmonary or pleural abnormality. No pneumothorax. ADDITIONAL FINDINGS: No significant additional findings. IMPRESSION: 1. No acute findings. Signer Name: Darren Leo MD Signed: 08/15/2021 12:20 AM Workstation Name: [id number]
[2021-08-15 00:25] LABS: INR 0.91 (0.87-1.13)
[2021-08-15 00:26] LABS: Partial Thromboplastin Time 25.8 Sec. (24.2-36.6)
[2021-08-15 00:31] LABS: Alanine Aminotransferase 43 units/L (7-56); Albumin 4.4 g/dL (3.9-5); BUN/Creatinine Ratio 23; Blood Urea Nitrogen 21 mg/dL (9-20); Calcium 10.9 mg/dL (8.4-10.2); Hemolysis Index 30
[2021-08-15] MEDS ORDERED: HEPARIN 10,000 UNITS/10 ML VIAL IV ONE (00:50)
[2021-08-15] MEDS ORDERED: CLOPIDOGREL 300 MG TAB PO ONE (01:40)
[2021-08-15] MEDS ORDERED: ONDANSETRON 4 MG/2 ML INJ IV PRN (01:47)
[2021-08-15] MEDS ORDERED: MAGNESIUM HYDROXIDE (MOM) ORAL LIQD UDC PO PRN (01:47)
[2021-08-15] MEDS ORDERED: ACETAMINOPHEN 325 MG TAB PO PRN ×2 (01:47)
--- NOTE | 2021-08-15 01:57 | History and Physical Report ---
History of Present Illness Date of examination: 08/15/21 Date of admission: 08/15/2021 Chief complaint: Chest Pain History of present illness: 66-year-old male with significant past medical history of hypertension presenting to the emergency room today complaining of chest pain which started sometime this afternoon. Chest pain was said to be substernal and felt like pressure, nonradiating. On a scale of 10 pain was about 8/10 in severity. No known relieving or exacerbating factor. Chest pain was associated with some some shortness of breath, palpitation and diaphoresis. He denies any cough, no nausea or vomiting, no abdominal pain. Denies any fever or chills. Patient denies any recent travel. Denies any sick contacts . Work-up in the emergency room today, chest x-ray was unremarkable. Lab reveals troponin of 0.348. EKG @ 23:19-> HR 108, A fib, narrow QRS, minimal ST elevations with pathological q waves in III, aVF and minimal reciprocal ST/J point depressions in I, aVL and V2. Findings were discussed with (Dr. Marquis [beveling machine operator production assembly supervisor] by the ER physician. He recommends that patient does not meet criteria for STEMI @ this time) Patient was started on aspirin sublingual nitroglycerin and heparin drip. Past History Past Medical History: arthritis, COPD, hypertension Past Surgical History: Other ( Deteriorating disc surgery, Left shoulder surgery, Left knee replacement.) Social history: smoking (Current Every Day Smoker), alcohol abuse Family history: no significant family history Medications and Allergies Allergies Allergy/AdvReac Type Severity Reaction Status Date / Time Penicillins Allergy Hives Verified 10/29/13 14:20 Home Medications Medication Instructions Recorded Confirmed Last Taken Type amLODIPine [Norvasc] 10 mg PO DAILY 09/30/14 10/01/14 09/30/14 History ALPRAZolam [Xanax TAB] 0.5 mg PO BID PRN 10/01/14 10/01/14 09/30/14 History HYDROcodone/APAP 10-325 [[place] 1 tab PO PRN PRN 10/01/14 10/01/14 09/30/14 History 10-325 mg TAB] Losartan/Hydrochlorothiazide 1 tab PO DAILY 10/01/14 10/01/14 09/30/14 History [Hyzaar 100-25 TAB] Albuterol Sulfate [Ventolin HFA] 2 puff IH Q4H PRN #1 hfa.aer.ad 11/22/14 Unknown Rx Azithromycin [Zithromax Z-SHY] 500 mg PO DAILY #1 pkg 11/22/14 Unknown Rx Fluticasone [Flonase] 2 spray NS QDAY #1 bottle 11/22/14 Unknown Rx Promethazine /Codeine 5 ml PO Q6H PRN #150 ml 11/22/14 Unknown Rx [Phenergan/Codeine 6.25-10 mg/5 ml] predniSONE [Deltasone] 20 mg PO QDAY #5 tab 11/22/14 Unknown Rx Acetaminophen/Codeine [Tylenol #3] 1 tab PO Q6H PRN #14 tab 08/25/15 Unknown Rx Cyclobenzaprine [Flexeril] 10 mg PO TID PRN #20 tablet 08/25/15 Unknown Rx Ibuprofen [Motrin] 800 mg PO Q8HR PRN #30 tablet 08/25/15 Unknown Rx Ibuprofen [Motrin] 600 mg PO Q8H PRN #30 tablet 06/26/17 Unknown Rx traMADoL [Ultram] 50 mg PO Q6HR PRN #15 tablet 06/26/17 Unknown Rx Famotidine [Pepcid] 20 mg PO BID #60 tablet 07/22/18 Unknown Rx diphenhydrAMINE [Benadryl CAP] 25 mg PO Q6HR #21 capsule 07/22/18 Unknown Rx predniSONE [Deltasone] 40 mg PO QDAY #10 tab 07/22/18 Unknown Rx traMADoL [Ultram] 50 mg PO Q6HR PRN #15 tablet 07/22/18 Unknown Rx HYDROcodone/APAP 5-325 [[place] 1 each PO Q6HR PRN #10 tablet 11/20/18 Unknown Rx 5/325] Meloxicam [Mobic] 15 mg PO QDAY #30 tablet 09/26/20 Unknown Rx predniSONE [Deltasone] 20 mg PO QDAY 5 Days #5 tab 09/26/20 Unknown Rx Triamcinolone 0.1% [Kenalog 0.1% 1 applic TP BID 7 Days #1 tube 06/08/21 Unknown Rx CREAM] Active Meds: Active Medications Heparin Sodium/Sodium Chloride (Heparin/ 0.45% Nacl-25,000 Unit/500 Ml) 25,000 unit in 500 mls @ 0 mls/hr IV TITRATE ALEJANDRA; Protocol Review of Systems Constitutional: no fever, no chills Ears, nose, mouth and throat: no nasal congestion, no sore throat Cardiovascular: chest pain, no orthopnea, no palpitations Respiratory: no cough, no shortness of breath Gastrointestinal: no abdominal pain, no nausea, no vomiting, no diarrhea Genitourinary Male: no dysuria, no hematuria, no flank pain, no nocturia Musculoskeletal: no neck pain, no low back pain Integumentary: no rash, no pruritis Neurological: no headaches, no confusion Psychiatric: no anxiety, no depression Endocrine: no polyphagia, no polydipsia, no polyuria, no nocturia Exam - Constitutional Vitals: Temp Pulse Resp BP Pulse Ox 98 F 120 H 18 134/76 100 08/15/21 00:00 08/15/21 00:08 08/15/21 00:00 08/15/21 00:08 08/15/21 00:00 General appearance: Present: no acute distress, well-nourished - EENT Eyes: Present: PERRL, EOM intact. Absent: scleral icterus ENT: hearing intact, clear oral mucosa, dentition normal - Neck Neck: Present: supple, normal ROM - Respiratory Respiratory effort: normal Respiratory: bilateral: CTA - Cardiovascular Rhythm: regular Heart Sounds: Present: S1 & S2. Absent: gallop, systolic murmur, diastolic murmur, rub, click - Extremities Extremities: no ischemia, pulses intact, pulses symmetrical, No edema, normal temperature, Full ROM Peripheral Pulses: within normal limits - Abdominal General gastrointestinal: Present: soft, non-tender, non-distended, normal bowel sounds, mass - Integumentary Integumentary: Present: clear, warm, dry, normal turgor. Absent: rash - Musculoskeletal Musculoskeletal: strength equal bilaterally - Psychiatric Psychiatric: appropriate mood/affect, intact judgment & insight, memory intact, cooperative - Neurologic Neurologic: CNII-XII intact, no focal deficits, moves all extremities HEART Score - HEART Score Troponin: Troponin T 0.348 ng/mL (0.00-0.029) H* 08/14/21 23:39 Results - Labs CBC & Chem 7: 08/14/21 23:39 08/15/21 02:07 Labs: Abnormal lab results 08/14/21 08/14/21 Range/Units 23:39 23:39 RBC 5.51 H (3.65-5.03) M/mm3 Hgb 15.8 H (11.8-15.2) gm/dl Hct 48.3 H (35.5-45.6) % RDW 15.6 H (13.2-15.2) % Carbon Dioxide 19 L (22-30) mmol/L BUN 21 H (9-20) mg/dL Glucose 153 H (75-100) mg/dL Calcium 10.9 H (8.4-10.2) mg/dL AST 70 H (5-40) units/L Troponin T 0.348 H* (0.00-0.029) ng/mL Assessment and Plan - Patient Problems (1) Chest pain Current Visit: Yes Status: Acute Plan to address problem: Patient admitted and placed on telemetry. With check serial cardiac enzymes. Will be scheduled for echocardiogram and stress test. We willawait further evaluation and recommendations by cardiology. (2) Elevated troponin Current Visit: Yes Status: Acute Plan to address problem: Will continue to trend troponin levels. We will continue to work-up for possible NH (3) DVT prophylaxis Current Visit: Yes Status: Acute Plan to address problem: Patient currently on heparin drip. (4) Full code status Current Visit: Yes Status: Acute Plan to address problem: Patient is full code.
[2021-08-15 01:58] LABS: Basophils % (Manual) 0 % (0.0-1.8); Platelet Estimate Consistent w Auto; RBC Morphology Normal; Total Cells Counted 100
[2021-08-15] MEDS: HEPARIN/ 0.45% NACL DRIP 25,000 UNIT/500 ML BAG IV SCH (02:38)
[2021-08-15 03:10] LABS: BUN/Creatinine Ratio 23; Blood Urea Nitrogen 23 mg/dL (9-20); Calcium 11.1 mg/dL (8.4-10.2); Hemolysis Index 33
[2021-08-15] MEDS: traMADol 50 MG TAB PO PRN ×2 (03:34→20:31)
[2021-08-15] MEDS: MORPHINE 2 MG/1 ML INJ IV PRN ×2 (06:52→22:41)
[2021-08-15 07:15] LABS: HDL Cholesterol 35 mg/dL (40-59); LDL Cholesterol,Direct 145 mg/dL (50-130)
[2021-08-15] MEDS ORDERED: REGADENOSON 0.4 MG/5 ML INJ IV ONE (08:22)
[2021-08-15] MEDS ORDERED: ALBUTEROL 8.5 GM MDI INHALATION IH PRN (09:14)
[2021-08-15] MEDS: MORPHINE 4 MG/1 ML INJ IV PRN ×2 (09:30→16:29)
[2021-08-15] MEDS ORDERED: VERAPAMIL 5 MG/2 ML INJ ONE (10:36)
[2021-08-15] MEDS ORDERED: LIDOCAINE (2%) 20 MG/1 ML VIAL 50 ML MDV INFILTRATI ONE (10:36)
[2021-08-15] MEDS ORDERED: HEPARIN/NS 5000 UNIT/500ML 1,000 ML IR ONE (10:36)
[2021-08-15] MEDS ORDERED: NITROGLYCERIN SYRINGE 0 ML ONE (10:37)
[2021-08-15] MEDS: FAMOTIDINE 20 MG TAB PO SCH ×2 (10:44→21:12)
[2021-08-15] MEDS: LIDOCAINE (1%) 10 MG/1 ML VIAL 20 ML MDV ONE ×4 (10:50→13:34)
[2021-08-15] MEDS: MIDAZOLAM 2 MG/2 ML INJ ONE ×3 (10:50→12:15)
[2021-08-15] MEDS: fentaNYL 100 MCG/2 ML INJ ONE ×3 (10:50→12:15)
[2021-08-15] MEDS: HEPARIN 10,000 UNITS/10 ML VIAL ONE ×2 (10:51→11:58)
[2021-08-15] MEDS ORDERED: ASPIRIN EC 325 MG TAB PO ONE (10:52)
[2021-08-15] MEDS ORDERED: SODIUM CHLORIDE 0.9% 500 ML 500 ML IV SCH ×2 (11:00→15:00)
[2021-08-15] MEDS ORDERED: SODIUM CHLORIDE 0.9% 500 ML 500 ML ONE ×2 (11:09→12:05)
[2021-08-15] MEDS: FLUTICASONE PROPIONATE NASAL SPRAY 16 GM NS SCH (11:34)
[2021-08-15] MEDS ORDERED: HEPARIN/NS 5000 UNIT/500ML 500 ML IR ONE ×2 (11:46→11:56)
[2021-08-15] MEDS ORDERED: ALBUTEROL 2.5 MG/3 ML NEBU IH PRN (12:00)
[2021-08-15] MEDS ORDERED: MORPHINE 10 MG/1 ML INJ ONE (12:42)
[2021-08-15] MEDS: ALBUTEROL 2.5 MG/3 ML NEBU IH SCH ×3 (13:30→20:45)
[2021-08-15] MEDS: HYDROcodone/ACETAMINOPHEN 5-325 MG TAB PO PRN (13:34)
--- NOTE | 2021-08-15 14:24 | Consultation ---
History of Present Illness Consult date: 08/15/21 Requesting physician: JUANY RILEY Consult reason: chest pain, other (NSTEMI) History of present illness: Patient is a 66-year-old male with a past medical history of hypertension and arthritis who presented to the ED yesterday with a complaint of chest pain which started yesterday afternoon while watching TV. Patient reports that while watching TV he suddenly developed chest pain which he described as a pressure in the center of his chest. He rated the pain 10 out of 10. Patient came to the ED for further evaluation. Patient associated chest pressure with shortness of breath and diaphoresis. At time of interview patient rated pain 8 out of 10. In the ED patient was noted to have elevated troponin consistent with NSTEMI and to be in A. fib. Of note patient denies history of A. fib however states as an outpatient he is on a blood thinner but is unsure why or what it is called. Patient also reports that he has not followed up with a long chain dyeing machine operator in over 10 years. Patient denies nausea, vomiting, palpitations. Patient is previously unknown to our practice. Cardiology is consulted for chest pain. Past History Past Medical History: arthritis, COPD, hypertension Past Surgical History: Other ( Deteriorating disc surgery, Left shoulder surgery, Left knee replacement.) Social history: smoking (Current Every Day Smoker), alcohol abuse Family history: no significant family history Medications and Allergies Allergies Allergy/AdvReac Type Severity Reaction Status Date / Time Penicillins Allergy Hives Verified 08/15/21 12:32 Home Medications Medication Instructions Recorded Confirmed Last Taken Type amLODIPine [Norvasc] 10 mg PO DAILY 09/30/14 08/15/21 09/30/14 History Losartan/Hydrochlorothiazide 1 tab PO DAILY 10/01/14 08/15/21 09/30/14 History [Hyzaar 100-25 TAB] Cyclobenzaprine [Flexeril] 10 mg PO BID 08/15/21 08/15/21 Unknown History Meloxicam [Mobic] 7.5 mg PO BID 08/15/21 08/15/21 Unknown History Zolpidem Tartrate 10 mg PO HS PRN 08/15/21 08/15/21 Unknown History Active Meds: Active Medications Acetaminophen (Acetaminophen 325 Mg Tab) 650 mg PO Q4H PRN PRN Reason: Pain MILD(1-3)/Fever >100.5/[place] Hydrocodone Bitart/Acetaminophen (Hydrocodone/Acetaminophen 5-325 Mg Tab) 1 each PO Q4H PRN PRN Reason: Pain, Moderate (4-6) Last Admin: 08/15/21 13:34 Dose: 1 each Albuterol (Albuterol 2.5 Mg/3 Ml Nebu) 2.5 mg IH Q4HRT ALEJANDRA Last Admin: 08/15/21 13:30 Dose: Not Given Albuterol (Albuterol 2.5 Mg/3 Ml Nebu) 2.5 mg IH Q2HRT PRN PRN Reason: Shortness Of Breath Alprazolam (Alprazolam 0.5 Mg Tab) 0.5 mg PO BID PRN PRN Reason: Anxiety Aspirin (Aspirin Ec 325 Mg Tab) [address] [facility] Last Admin: 08/15/21 10:55 Dose: 325 mg Atorvastatin Calcium (Atorvastatin 40 Mg Tab) [address] [facility] Clopidogrel Bisulfate (Clopidogrel 75 Mg Tab) [address] [facility] Cyclobenzaprine HCl (Cyclobenzaprine 10 Mg Tab) 10 mg PO TID PRN PRN Reason: Muscle Spasm Famotidine (Famotidine 20 Mg Tab) [address] [facility] Fluticasone Propionate (Fluticasone Propionate Nasal [place] 16 Gm) [address] [facility] Heparin Sodium/Sodium Chloride (Heparin/ 0.45% Nacl-25,000 Unit/500 Ml) 25,000 unit in 500 mls @ 20 mls/hr IV TITRATE ALEJANDRA; Protocol Last Admin: 08/15/21 02:38 Dose: 1,000 units/hr, 20 mls/hr Sodium Chloride (Nacl 0.9% 500 Ml) 500 mls @ 50 mls/hr IV DIRECT ALEJANDRA Stop: 08/15/21 20:59 Last Admin: 08/15/21 10:51 Dose: 500 mls Sodium Chloride (Nacl 0.9% 500 Ml) 500 mls @ 50 mls/hr IV DIRECT ALEJANDRA Stop: 08/16/21 00:59 Magnesium Hydroxide (Magnesium Hydroxide (Mom) Oral Liqd Udc) 30 ml PO Q4H PRN PRN Reason: Constipation Metoprolol Tartrate (Metoprolol Tartrate 50 Mg Tab) [address] [facility] Morphine Sulfate (Morphine 2 Mg/1 Ml Inj) 2 mg IV Q4H PRN PRN Reason: Pain, Moderate (4-6) Last Admin: 08/15/21 06:52 Dose: 2 mg Morphine Sulfate (Morphine 4 Mg/1 Ml Inj) 4 mg IV Q4H PRN PRN Reason: Pain , Severe (7-10) Morphine Sulfate (Morphine 4 Mg/1 Ml Inj) 2 mg IV Q5MIN PRN PRN Reason: Chest Pain unrelieved by NTG Last Admin: 08/15/21 09:30 Dose: 2 mg Ondansetron HCl (Ondansetron 4 Mg/2 Ml Inj) 4 mg IV Q8H PRN PRN Reason: Nausea And Vomiting Sodium Chloride (Sodium Chloride 0.9% 10 Ml Flush Syringe) 10 ml IV BID ALEJANDRA Sodium Chloride (Sodium Chloride 0.9% 10 Ml Flush Syringe) 10 ml IV PRN PRN PRN Reason: LINE FLUSH Tramadol HCl (Tramadol 50 Mg Tab) 50 mg PO Q6H PRN PRN Reason: Pain, Moderate (4-6) Last Admin: 08/15/21 03:34 Dose: 50 mg Review of Systems Constitutional: no weight loss, no weight gain, no fever, no chills Ears, nose, mouth and throat: no nasal discharge, no sinus pressure, no sinus pain Cardiovascular: chest pain, shortness of breath, other (diaphoresis) Respiratory: shortness of breath Gastrointestinal: no abdominal pain, no nausea, no vomiting Musculoskeletal: no neck stiffness, no neck pain Integumentary: no rash, no pruritis, no redness Neurological: no head injury, no transient paralysis Psychiatric: no anxiety, no memory loss Endocrine: no cold intolerance, no heat intolerance Hematologic/Lymphatic: no easy bruising, no easy bleeding Physical Examination Vital Signs Pulse Resp BP Pulse Ox 109 H 13 134/76 94 08/14/21 23:55 08/14/21 23:55 08/14/21 23:55 08/14/21 23:55 General appearance: no acute distress HEENT: Positive: Normocephaly Neck: Positive: trachea midline Cardiac: Positive: irregularly irregular Lungs: Positive: Normal Breath Sounds Neuro: Positive: Grossly Intact Abdomen: Positive: Soft, Active Bowel Sounds Skin: Negative: Rash, Suspicious Lesions, Ulceration Extremities: Present: upper extr. pulses. Absent: edema Results 08/14/21 23:39 08/15/21 02:07 Cardiac Enzymes 08/14/21 Range/Units 23:39 AST 70 H (5-40) units/L Coagulation 08/14/21 Range/Units 23:39 PT 13.2 (12.2-14.9) Sec. INR 0.91 (0.87-1.13) APTT 25.8 (24.2-36.6) Sec. Lipids 08/14/21 Range/Units 23:39 Triglycerides 334 H (2-149) mg/dL Cholesterol 224 H (50-199) mg/dL HDL Cholesterol 35 L (40-59) mg/dL Cholesterol/HDL Ratio 6.40 % CBC 08/14/21 Range/Units 23:39 WBC 7.3 (4.5-11.0) K/mm3 RBC 5.51 H (3.65-5.03) M/mm3 Hgb 15.8 H (11.8-15.2) gm/dl Hct 48.3 H (35.5-45.6) % Plt Count 185 (140-440) K/mm3 Comprehensive Metabolic Panel 08/14/21 08/15/21 Range/Units 23:39 02:07 Sodium 138 137 (137-145) mmol/L Potassium 3.6 3.7 (3.6-5.0) mmol/L Chloride 98.7 98.6 (98-107) mmol/L Carbon Dioxide 19 L 19 L (22-30) mmol/L BUN 21 H 23 H (9-20) mg/dL Creatinine 0.9 1.0 (0.8-1.3) mg/dL Glucose 153 H 157 H (75-100) mg/dL Calcium 10.9 H 11.1 H (8.4-10.2) mg/dL AST 70 H (5-40) units/L ALT 43 (7-56) units/L Alkaline Phosphatase 42 (35-129) units/L Total Protein 7.9 (6.3-8.2) g/dL Albumin 4.4 (3.9-5) g/dL - Imaging and Cardiology Echo: pending Cardiac cath: pending EKG interpretations - Telemetry EKG Rhythm: Atrial Fibrillation - EKG Supraventricular dysrhythmia: atrial fibrillation Assessment and Plan Patient is a 66-year-old male with a past medical history of hypertension and arthritis who presented to the ED yesterday with a complaint of chest pain which started day prior to admission while watching TV. NSTEMI A. fib Coronary artery disease Hypertension Plan: EKG this a.m. shows A. fib rate [address] depressions in V2 and V3, V4, V5. Troponin is noted to be elevated and patient report complaint of chest pain. Patient to be taken to Criminal Research Specialist Patient was found to have occluded RCA. See cath report for details Initiate aspirin, Plavix, statin, and metoprolol 50 mg p.o. twice daily Resume anticoagulation with heparin drip 6 hours after sheath is pulled from groin cath site Echo pending Will plan for cardiac cath on Sunday Patient seen in conjunction with Dr. Alberts who agrees with this plan of care - Patient Problems (1) NSTEMI (non-ST elevated myocardial infarction) Current Visit: Yes Status: Acute (2) A-fib Current Visit: Yes Status: Acute (3) Coronary artery disease Current Visit: Yes Status: Acute (4) Abnormal EKG Current Visit: Yes Status: Acute (5) Chest pain Current Visit: Yes Status: Acute
--- NOTE | 2021-08-15 14:26 | Event Note ---
Date: 08/15/21 Patient seen and examined, this is the second visit after midnight 66-year-old male with significant past medical history of hypertension presenti ng to the emergency room with complaining of chest pain which started sometime earlier in the afternoon. Work-up in the emergency room showed chest x-ray was unremarkable. Lab reveals troponin of 0.348. EKG @ 23:19-> HR 108, A fib, narrow QRS, minimal ST elevations with pathological q waves in III, aVF and minimal reciprocal ST/J point depressions in I, aVL and V2. Findings were discussed with (Dr. Marquis [change advisor director of early childhood education] by the ER physician. He recommends that patient does not meet criteria for STEMI @ this time). Patient was started on aspirin sublingual nitroglycerin and heparin drip and admitted in the hospital for further evaluation management. Repeat EKG today showed similar findings which conveyed to the cardiology nurse practitioner Will follow cardiology recommendation, continue heparin drip, antiplatelet and statin for now. Hold beta-miranda for soft BP. Patient continued to complains of intermittent chest pain, no apparent distress, S1-S2 positive Patient was taken for cath and found to have occluded RCA. Initiated aspirin, Plavix, statin, and metoprolol 50 mg p.o. twice daily will Resume anticoagulation with heparin drip 6 hours after sheath is pulled from groin cath site Echo pending, Will plan for repeat cardiac cath on Sunday It took me about 28 minutes to reevaluate and reasses this patient, discussed with RN/CM, review medical documents, lab results, imaging, medication list and placing order.
[2021-08-15] MEDS: METOPROLOL TARTRATE 50 MG TAB PO SCH ×2 (16:30→21:13)
[2021-08-15] MEDS: CYCLOBENZAPRINE 10 MG TAB PO PRN (20:31)
[2021-08-16] MEDS: ALPRAZolam 0.5 MG TAB PO PRN (03:59)
[2021-08-16] MEDS: MORPHINE 2 MG/1 ML INJ IV PRN (04:13)
[2021-08-16 05:14] LABS: Hematocrit 40.6 % (35.5-45.6); Hemoglobin 13.5 gm/dl (11.8-15.2); Mean Corpuscular HGB Conc 33 % (32-34); Mean Corpuscular Volume 89 fl (84-94); Platelet Count 164 K/mm3 (140-440); Red Blood Count 4.58 M/mm3 (3.65-5.03); Red Cell Distribution Width 15.8 % (13.2-15.2)
[2021-08-16] MEDS: HEPARIN/ 0.45% NACL DRIP 25,000 UNIT/500 ML BAG IV SCH (05:31)
[2021-08-16 05:44] LABS: Calcium 9.4 mg/dL (8.4-10.2)
[2021-08-16] MEDS ORDERED: HEPARIN 10,000 UNITS/10 ML VIAL IV PRN (06:08)
[2021-08-16 07:54] LABS: Anisocytosis 1+; Basophils % (Manual) 0 % (0.0-1.8); Platelet Estimate Consistent w Auto; Total Cells Counted 100
[2021-08-16] MEDS ORDERED: ASPIRIN EC 325 MG TAB PO SCH ×2 (10:00)
[2021-08-16] MEDS: IPRATROPIUM/ALBUTEROL SULFATE 3 ML AMPUL.NEB IH SCH ×3 (10:45→21:54)
[2021-08-16] MEDS: CLOPIDOGREL 75 MG TAB PO SCH (11:56)
[2021-08-16] MEDS: FAMOTIDINE 20 MG TAB PO SCH ×2 (11:56→21:03)
[2021-08-16] MEDS: ASPIRIN EC 81 MG TAB PO SCH (11:56)
[2021-08-16] MEDS: FLUTICASONE PROPIONATE NASAL SPRAY 16 GM NS SCH (11:59)
[2021-08-16] MEDS: METOPROLOL TARTRATE 50 MG TAB PO SCH ×2 (12:03→21:15)
--- NOTE | 2021-08-16 12:13 | Electrocardiograph Report ---
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
--- NOTE | 2021-08-16 12:20 | Electrocardiograph Report ---
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
--- NOTE | 2021-08-16 12:42 | Cardiac Catherization Report ---
DATE OF SERVICE: 08/15/2021 CARDIAC CATHETERIZATION AND CORONARY INTERVENTION REPORT INDICATIONS: The patient is a 66-year-old white gentleman with a history of hypertension and arthritis with back pain and history of left shoulder surgery and left knee replacement and chronic smoker, presented to the Emergency Room with chest pain of more than 9 hours duration. He was found to be in atrial fibrillation. Apparently, he was on a blood thinner in the outpatient setting in the past. He did not see any pin or clip fastener in 10 years. EKG showed atrial fibrillation with mild ST elevations in the inferior leads. The patient is having persistent chest pain and was noted to have elevated troponin level of 0.348 to 7.110. Because of persistent chest pain with above presentation, the patient was taken to the catheterization laboratory on an urgent basis. The patient is aware of the procedure, potential complications, and alternatives of therapy available. The patient was evaluated for moderate sedation, apparently his oxygen saturations are low and after evaluating for moderate sedation, cautiously administered IV Versed and fentanyl and started monitoring with pulse oximetry. DESCRIPTION OF PROCEDURE: The patient was prepared in standard fashion and right radial artery access was obtained using 21-gauge arterial puncture needle after giving local anesthesia. The wire could be advanced only to few centimeters into the radial artery and then is not advancing on few attempts. Considering the difficulty with passing the wire, access site was changed to right femoral artery under fluoroscopy. After giving local anesthesia, right femoral artery puncture was made using 5-Gambian micropuncture needle. Subsequently, a 6-Gambian slender sheath was introduced. Angiograms of the left coronary artery and right coronary artery were obtained in addition to left ventriculogram done in KELSEY projection using hand injection. Following findings were noted. Aortic pressure 96/59, left ventricular pressure 100/22. The patient's rhythm is atrial fibrillation with controlled rate. Left ventriculogram done in KELSEY projection showed normal sized left ventricle with very small area of akinesis in the mid part of the inferior wall. Overall, left ventricular fraction is preserved in the range of 50-55%. Mitral regurgitation could not be evaluated because of limited amount of dye injected. Right coronary artery showed RCA to be arising normally from right coronary cusp and is totally occluded with no antegrade or retrograde flow to the RCA after the origin of a medium-sized right ventricular branch. Left coronary artery arises normally from left coronary cusp. The left main without significant disease. LAD showed mild irregularities with 30% to 40% long smooth lesion in the proximal part. It curls around the apex. The large ramus branch shows 30% ostial lesion. Similarly circumflex artery shows 40% ostial lesion. Otherwise, rest of the circumflex artery and its branches show only mild irregularities. COLLATERALS: None. FINAL IMPRESSION: 1. Normal-sized left ventricle with normal contractility with very small area of akinesis in the mid inferior wall. 2. Occluded mid right coronary artery with no antegrade or retrograde visualization of the distal vessel. Left coronary system showing mild to moderate disease. It was felt the patient may have an acute occlusion causing his symptoms, hence it was converted to intervention. The patient has indwelling 6-Gambian sheath in the right groin. The patient was given heparin as the anticoagulant. A 6-Gambian guiding catheter was used to engage the right coronary artery. A 0.014 inch [place] XT wire was advanced into the RCA without difficulty. The lesion was dilated with a 2.5 x 12 mm balloon few times in the proximal and mid RCA. This resulted in BARBARA 3 flow with visualization of the PDA. However, left ventricular branches were faintly visualized. In the meantime, the patient is having severe back pain and he cannot stay still on the table. Considering his low oxygen saturations and inability to stay on the table, it was felt to bring back the patient at a subsequent later for further evaluation. Presently, BARBARA 3 flow was noted with [id number] diffuse in the mid RCA. LV branches are not visualized well. Probably occluded from thrombus. PDA is well visualized with a BARBARA 3 flow. Considering his inability to stay on the table, procedure was aborted. The patient was transferred to the outpatient area in stable condition. The patient tolerated the procedure well except for his back pain. The patient's moderate sedation monitoring started at 10:50 a.m. and ended at 12:12 noon time. FINAL IMPRESSION: Balloon angioplasty of the totally occluded mid RCA with conversion of the BARBARA 0 flow to BARBARA 3 flow. This is relatively small caliber vessel with what appears to be thrombus in the distal vessels. PLAN: At this time is to continue IV heparin and bring him back in the next 48 hours for angiography and possible intervention. The patient was started on aspirin, Plavix in addition to beta blockers and atorvastatin. The patient tolerated the procedure well. No untoward complications were noted. TID: [id number] RECEIPT: [id number] ARIE/JOSEFINA MCKNIGHT
[2021-08-16] MEDS: SODIUM CHLORIDE 0.9% 1000 ML 1,000 ML IV SCH ×2 (12:58→20:49)
--- NOTE | 2021-08-16 13:54 | Progress Note ---
Assessment and Plan Patient is a 66-year-old male with a past medical history of hypertension and arthritis who presented to the ED yesterday with a complaint of chest pain which started day prior to admission while watching TV. NSTEMI A. fib Coronary artery disease Hypertension Echo 08/15/2021-EF 55 to 60% mild concentric LVH. Right ventricular systolic function is mildly reduced. Right ventricle is normal in size mild tricuspid regurg Cardiac cath 08/15/[id number] LV with normal contractility with very small area of akinesis in the mid inferior wall. Occluded mid RCA with no antegrade or retrograde visualization of the distal vessel. Left coronary system showing mild to moderate disease. Balloon angioplasty of totally occluded RCA Plan: Patient was found to have occluded RCA. See cath report for details Continue aspirin, Plavix, statin, and metoprolol 50 mg p.o. twice daily Continue heparin drip Echo results noted above Will plan for cardiac cath on tomorrow. Patient to be n.p.o. after midnight Rising creatinine noted. Will initiate IVF with normal saline at 75 cc/hour Plan of care discussed with patient who verbalized understanding and acknowledgment Patient seen in conjunction with Dr. Alberts who agrees with this plan of care - Patient Problems (1) NSTEMI (non-ST elevated myocardial infarction) Current Visit: Yes Status: Acute (2) A-fib Current Visit: Yes Status: Acute (3) Coronary artery disease Current Visit: Yes Status: Acute (4) Abnormal EKG Current Visit: Yes Status: Acute (5) Chest pain Current Visit: Yes Status: Acute Subjective Date of service: 08/16/21 Principal diagnosis: NSTEMI Interval history: Patient resting in bed in no acute distress A. fib 60 to 70s on monitor Objective Vital Signs Temp Pulse Pulse Resp Resp BP Pulse Ox 08/16/21 12:03 68 90/49 08/16/21 08:23 97 08/16/21 07:38 97.8 F 70 20 85/49 91 08/16/21 06:00 71 97 08/16/21 03:38 98.1 F 73 18 101/59 97 08/15/21 23:05 98.7 F 86 19 117/56 91 08/15/21 21:13 88 106/60 08/15/21 20:48 92 08/15/21 20:46 92 08/15/21 20:45 85 17 08/15/21 19:31 99.2 F 77 18 103/41 93 08/15/21 16:52 98.3 F 78 18 149/75 100 08/15/21 16:44 97.5 F L 80 18 95/63 91 08/15/21 16:24 98.0 F 71 20 95/56 91 08/15/21 16:11 70 20 08/15/21 16:10 95 08/15/21 15:18 77 18 107/56 94 08/15/21 15:12 76 18 93/54 95 08/15/21 14:30 70 18 98/54 95 - Physical Examination General: No Apparent Distress HEENT: Positive: Normocephaly Neck: Positive: trachea midline Cardiac: Positive: irregularly irregular Lungs: Positive: Normal Breath Sounds Neuro: Positive: Grossly Intact Abdomen: Positive: Soft, Active Bowel Sounds Skin: Negative: Rash, Suspicious Lesions, Ulceration Extremities: Present: upper extr. pulses. Absent: edema - Labs and Meds CBC 08/16/21 Range/Units 03:53 WBC 11.1 H (4.5-11.0) K/mm3 RBC 4.58 (3.65-5.03) M/mm3 Hgb 13.5 (11.8-15.2) gm/dl Hct 40.6 D (35.5-45.6) % Plt Count 164 (140-440) K/mm3 Comprehensive Metabolic Panel 08/16/21 Range/Units 03:53 Sodium 141 (137-145) mmol/L Potassium 4.5 D (3.6-5.0) mmol/L Chloride 101.4 (98-107) mmol/L Carbon Dioxide 20 L (22-30) mmol/L BUN 33 H (9-20) mg/dL Creatinine 1.5 H (0.8-1.3) mg/dL Glucose 115 H (75-100) mg/dL Calcium 9.4 D (8.4-10.2) mg/dL - Imaging and Cardiology Echo: report reviewed Cardiac cath: report reviewed - Telemetry EKG Rhythm: Atrial Fibrillation - EKG Supraventricular dysrhythmia: atrial fibrillation
--- NOTE | 2021-08-16 16:12 | Progress Note ---
Assessment and Plan Assessment and plan: #NSTEMI TTE (08/15/2021) revealing EF 55-60% with normal-sized LV, normal LV systolic function, mild concentric LVH, mildly reduced RV systolic function, and RVSP is 28 mmHg. Left heart catheterization on 08/15/2021 revealed's small area of akinesis in the mild inferior wall, occluded mid RCA, and left coronary system revealing mild to moderate disease. Continue aspirin 81 mg daily, Plavix 75 mg daily atorvastatin 40 mg daily, metoprolol tartrate 50 mg twice daily. Continue heparin drip. 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 Patient will be n.p.o. at midnight. #Hypertension #Hypotension - home medications: Amlodipine 10 mg daily, losartan/HCTZ 78247 1 tab daily - current medications: Holding as the patient is mildly hypotensive - SBP goal <160 and DBP goal <90 while inpatient - continue to monitor #Morbid obesity #Weight loss counseling #Exercise counseling - BMI 35.9 - Counseled patient on the importance of weight loss, incorporating exercise, and dietary changes (lean meats, fresh fruits and vegetables, and water intake). Patient expresses understanding. - Time: +15 min #Advanced care planning -Disease education conducted, care plan discussed, diagnoses discussed, prognosis discussed, and patient acknowledges understanding with care plan -Time: +30 min Disposition Plan: Continue medical management Total Time Spent with Patient (Minutes): 45 min Hospitalist Physical - Constitutional Vitals: Temp Pulse Resp BP Pulse Ox 97.8 F 68 20 90/49 97 08/16/21 07:38 08/16/21 12:03 08/16/21 07:38 08/16/21 12:03 08/16/21 08:23 General appearance: Present: no acute distress HEART Score - HEART Score Troponin: Troponin T 7.110 ng/mL (0.00-0.029) H* 08/16/21 04:51 Results - Labs CBC & Chem 7: 08/16/21 03:53 08/16/21 03:53 Labs: Laboratory Last Values WBC 11.1 K/mm3 (4.5-11.0) H 08/16/21 03:53 RBC 4.58 M/mm3 (3.65-5.03) 08/16/21 03:53 Hgb 13.5 gm/dl (11.8-15.2) 08/16/21 03:53 Hct 40.6 % (35.5-45.6) D 08/16/21 03:53 MCV 89 fl (84-94) 08/16/21 03:53 MCH 30 pg (28-32) 08/16/21 03:53 MCHC 33 % (32-34) 08/16/21 03:53 RDW 15.8 % (13.2-15.2) H 08/16/21 03:53 Plt Count 164 K/mm3 (140-440) 08/16/21 03:53 [place] % (Auto) Foundry Supervisor 08/16/21 03:53 Add Manual Diff Complete 08/16/21 03:53 Total Counted 100 08/16/21 03:53 Seg Neuts % (Manual) 74.0 % (40.0-70.0) H 08/16/21 03:53 Band Neutrophils % 0 % 08/16/21 03:53 Lymphocytes % (Manual) 17.0 % (13.4-35.0) 08/16/21 03:53 Reactive Lymphs % (Man) 0 % 08/16/21 03:53 Monocytes % (Manual) 8.0 % (0.0-7.3) H 08/16/21 03:53 Eosinophils % (Manual) 1.0 % (0.0-4.3) 08/16/21 03:53 Basophils % (Manual) 0 % (0.0-1.8) 08/16/21 03:53 Metamyelocytes % 0 % 08/16/21 03:53 Myelocytes % 0 % 08/16/21 03:53 Promyelocytes % 0 % 08/16/21 03:53 Blast Cells % 0 % 08/16/21 03:53 Nucleated RBC % 1.0 % (0.0-0.9) H 08/16/21 03:53 Seg Neutrophils # Man 8.2 K/mm3 (1.8-7.7) H 08/16/21 03:53 Band Neutrophils # 0.0 K/mm3 08/16/21 03:53 Lymphocytes # (Manual) 1.9 K/mm3 (1.2-5.4) 08/16/21 03:53 Abs React Lymphs (Man) 0.0 K/mm3 08/16/21 03:53 Monocytes # (Manual) 0.9 K/mm3 (0.0-0.8) H 08/16/21 03:53 Eosinophils # (Manual) 0.1 K/mm3 (0.0-0.4) 08/16/21 03:53 Basophils # (Manual) 0.0 K/mm3 (0.0-0.1) 08/16/21 03:53 Metamyelocytes # 0.0 K/mm3 08/16/21 03:53 Myelocytes # 0.0 K/mm3 08/16/21 03:53 Promyelocytes # 0.0 K/mm3 08/16/21 03:53 Blast Cells # 0.0 K/mm3 08/16/21 03:53 WBC Morphology Not Reportable 08/16/21 03:53 Hypersegmented Neuts Not Reportable 08/16/21 03:53 Hyposegmented Neuts Not Reportable 08/16/21 03:53 Hypogranular Neuts Not Reportable 08/16/21 03:53 Smudge Cells Not Reportable 08/16/21 03:53 Toxic Granulation Not Reportable 08/16/21 03:53 Toxic Vacuolation Not Reportable 08/16/21 03:53 Dohle Bodies Not Reportable 08/16/21 03:53 Pelger-Huet Anomaly Not Reportable 08/16/21 03:53 Anthony Rods Not Reportable 08/16/21 03:53 Platelet Estimate Consistent w auto 08/16/21 03:53 Clumped Platelets Not Reportable 08/16/21 03:53 Plt Clumps, EDTA Not Reportable 08/16/21 03:53 Large Platelets Not Reportable 08/16/21 03:53 Giant Platelets Not Reportable 08/16/21 03:53 Platelet Satelliting Not Reportable 08/16/21 03:53 Plt Morphology Comment Not Reportable 08/16/21 03:53 RBC Morphology Not Reportable 08/16/21 03:53 Dimorphic RBCs Not Reportable 08/16/21 03:53 Polychromasia Not Reportable 08/16/21 03:53 Hypochromasia Not Reportable 08/16/21 03:53 Poikilocytosis Not Reportable 08/16/21 03:53 Anisocytosis 1+ 08/16/21 03:53 Microcytosis Not Reportable 08/16/21 03:53 Macrocytosis Not Reportable 08/16/21 03:53 Spherocytes Not Reportable 08/16/21 03:53 Pappenheimer Bodies Not Reportable 08/16/21 03:53 Sickle Cells Not Reportable 08/16/21 03:53 Target Cells Not Reportable 08/16/21 03:53 Tear Drop Cells Not Reportable 08/16/21 03:53 Ovalocytes Not Reportable 08/16/21 03:53 Helmet Cells Not Reportable 08/16/21 03:53 [place] Bodies Not Reportable 08/16/21 03:53 [place] Rings Not Reportable 08/16/21 03:53 [place] Cells Not Reportable 08/16/21 03:53 Bite Cells Not Reportable 08/16/21 03:53 Crenated Cell Not Reportable 08/16/21 03:53 Elliptocytes Not Reportable 08/16/21 03:53 Acanthocytes (Spur) Not Reportable 08/16/21 03:53 Rouleaux Not Reportable 08/16/21 03:53 Hemoglobin C Crystals Not Reportable 08/16/21 03:53 Schistocytes Not Reportable 08/16/21 03:53 Malaria parasites Not Reportable 08/16/21 03:53 [place] Bodies Not Reportable 08/16/21 03:53 Hem Pathologist Commnt No 08/16/21 03:53 PT 13.2 Sec. (12.2-14.9) 08/14/21 23:39 INR 0.91 (0.87-1.13) 08/14/21 23:39 APTT 25.8 Sec. (24.2-36.6) 08/14/21 23:39 Heparin Anti-Xa Level 0.39 U.I./ml (0.3-0.7) 08/16/21 03:53 Sodium 141 mmol/L (137-145) 08/16/21 03:53 Potassium 4.5 mmol/L (3.6-5.0) D 08/16/21 03:53 Chloride 101.4 mmol/L (98-107) 08/16/21 03:53 Carbon Dioxide 20 mmol/L (22-30) L 08/16/21 03:53 Anion Gap 24 mmol/L 08/16/21 03:53 BUN 33 mg/dL (9-20) H 08/16/21 03:53 Creatinine 1.5 mg/dL (0.8-1.3) H 08/16/21 03:53 Estimated GFR 56 ml/min 08/16/21 03:53 BUN/Creatinine Ratio 22 % 08/16/21 03:53 Glucose 115 mg/dL (75-100) H 08/16/21 03:53 Calcium 9.4 mg/dL (8.4-10.2) D 08/16/21 03:53 Total Bilirubin 0.60 mg/dL (0.1-1.2) 08/14/21 23:39 AST 70 units/L (5-40) H 08/14/21 23:39 ALT 43 units/L (7-56) 08/14/21 23:39 Alkaline Phosphatase 42 units/L (35-129) 08/14/21 23:39 Troponin T 7.110 ng/mL (0.00-0.029) H* 08/16/21 04:51 Total Protein 7.9 g/dL (6.3-8.2) 08/14/21 23:39 Albumin 4.4 g/dL (3.9-5) 08/14/21 23:39 Albumin/Globulin Ratio 1.3 % 08/14/21 23:39 Triglycerides 334 mg/dL (2-149) H 08/14/21 23:39 Cholesterol 224 mg/dL (50-199) H 08/14/21 23:39 LDL Cholesterol Direct 145 mg/dL (50-130) H 08/14/21 23:39 HDL Cholesterol 35 mg/dL (40-59) L 08/14/21 23:39 Cholesterol/HDL Ratio 6.40 % 08/14/21 23:39 [place]/IV: Voiding Method Urinal Active Medications - Current Medications Current Medications: Generic Name Dose Route Start Last Admin Trade Name Freq PRN Reason Stop Dose Admin Acetaminophen 650 mg 08/15/21 01:47 Acetaminophen 325 Mg Tab PO Q4H PRN Pain MILD(1-3)/Fever >100.5/FLORES Hydrocodone Bitart/Acetaminophen 1 each 08/15/21 12:40 08/15/21 13:34 Hydrocodone/Acetaminophen 5-325 Mg Tab PO 1 each Q4H PRN Administration Pain, Moderate (4-6) Albuterol 2.5 mg 08/15/21 12:00 Albuterol 2.5 Mg/3 Ml Nebu IH Q2HRT PRN Shortness Of Breath Albuterol/Ipratropium 1 ampul 08/16/21 08:00 08/16/21 10:45 Ipratropium/Albuterol Sulfate 3 Ml Ampul.Neb IH 1 ampul TIDRT ALEJANDRA Administration Alprazolam 0.5 mg 08/15/21 10:00 08/16/21 03:59 Alprazolam 0.5 Mg Tab PO 0.5 mg BID PRN Administration Anxiety Aspirin 81 mg 08/16/21 10:00 08/16/21 11:56 Aspirin Ec 81 Mg Tab PO 81 mg QDAY ALEJANDRA Administration Atorvastatin Calcium 40 mg 08/15/21 22:00 08/15/21 21:11 Atorvastatin 40 Mg Tab PO 40 mg QHS ALEJANDRA Administration Clopidogrel Bisulfate 75 mg 08/16/21 10:00 08/16/21 11:56 Clopidogrel 75 Mg Tab PO 75 mg QDAY ALEJANDRA Administration Cyclobenzaprine HCl 10 mg 08/15/21 09:30 08/15/21 20:31 Cyclobenzaprine 10 Mg Tab PO 10 mg TID PRN Administration Muscle Spasm Famotidine 20 mg 08/15/21 10:00 08/16/21 11:56 Famotidine 20 Mg Tab PO 20 mg BID ALEJANDRA Administration Fluticasone Propionate 100 mcg 08/15/21 10:00 08/16/21 11:59 Fluticasone Propionate [place] 16 Gm NS 100 mcg QDAY ALEJANDRA Administration Heparin Sodium (Porcine) 5,000 unit 08/16/21 06:08 Heparin 10,000 Units/10 Ml Vial IV Q6H PRN Anti-Xa Assay < 0.1 units/ml Heparin Sodium/Sodium Chloride 25,000 unit in 500 mls @ 20 mls/hr 08/15/21 01:00 08/16/21 05:31 Heparin/ 0.45% Nacl-25,000 Unit/500 Ml IV 1,000 units/hr TITRATE ALEJANDRA 20 mls/hr Administration Protocol 1,000 UNITS/HR Sodium Chloride 1,000 mls @ 75 mls/hr 08/16/21 13:00 08/16/21 12:58 Nacl 0.9% 1000 Ml IV 75 mls/hr DIRECT ALEJANDRA Administration Magnesium Hydroxide 30 ml 08/15/21 01:47 Magnesium Hydroxide (Mom) Oral Liqd Udc PO Q4H PRN Constipation Metoprolol Tartrate 50 mg 08/15/21 13:00 08/16/21 12:03 Metoprolol Tartrate 50 Mg Tab PO Not Given BID ALEJANDRA Morphine Sulfate 2 mg 08/15/21 01:47 08/16/21 04:13 Morphine 2 Mg/1 Ml Inj IV 2 mg Q4H PRN Administration Pain, Moderate (4-6) Morphine Sulfate 4 mg 08/15/21 01:47 08/15/21 16:29 Morphine 4 Mg/1 Ml Inj IV 4 mg Q4H PRN Administration Pain , Severe (7-10) Morphine Sulfate 2 mg 08/15/21 01:47 08/15/21 09:30 Morphine 4 Mg/1 Ml Inj IV 2 mg Q5MIN PRN Administration Chest Pain unrelieved by NTG Ondansetron HCl 4 mg 08/15/21 01:47 Ondansetron 4 Mg/2 Ml Inj IV Q8H PRN Nausea And Vomiting Sodium Chloride 10 ml 08/15/21 10:00 08/16/21 11:56 Sodium Chloride 0.9% 10 Ml Flush Syringe IV 10 ml BID ALEJANDRA Administration Sodium Chloride 10 ml 08/15/21 01:47 Sodium Chloride 0.9% 10 Ml Flush Syringe IV PRN PRN LINE FLUSH Tramadol HCl 50 mg 08/15/21 01:47 08/15/21 20:31 Tramadol 50 Mg Tab PO 50 mg Q6H PRN Administration Pain, Moderate (4-6)
[2021-08-16] MEDS ORDERED: SODIUM CHLORIDE 0.9% 1000 ML 1,000 ML IV ONE ×2 (16:52→18:16)
[2021-08-16] MEDS: CYCLOBENZAPRINE 10 MG TAB PO PRN (17:00)
[2021-08-16] MEDS: MORPHINE 4 MG/1 ML INJ IV PRN ×2 (22:11→22:12)
[2021-08-17 04:41] LABS: Basophils # (Auto) 0.1 K/mm3 (0.0-0.1); Basophils % (Auto) 0.6 % (0.0-1.8); Eosinophils # (Auto) 0.1 K/mm3 (0.0-0.4); Eosinophils % (Auto) 0.9 % (0.0-4.3); Hematocrit 37.3 % (35.5-45.6); Hemoglobin 12.1 gm/dl (11.8-15.2); Lymphocytes # (Auto) 2.8 K/mm3 (1.2-5.4); Lymphocytes % (Auto) 29.5 % (13.4-35.0); Mean Corpuscular HGB Conc 33 % (32-34); Mean Corpuscular Volume 91 fl (84-94); Monocytes # (Auto) 1.4 K/mm3 (0.0-0.8); Monocytes % (Auto) 14.6 % (0.0-7.3); Platelet Count 111 K/mm3 (140-440); Red Blood Count 4.11 M/mm3 (3.65-5.03); Red Cell Distribution Width 15.6 % (13.2-15.2)
[2021-08-17 05:00] LABS: Calcium 8.3 mg/dL (8.4-10.2)
[2021-08-17] MEDS: IPRATROPIUM/ALBUTEROL SULFATE 3 ML AMPUL.NEB IH SCH ×3 (07:53→20:30)
[2021-08-17] MEDS: SODIUM CHLORIDE 0.9% 1000 ML 1,000 ML IV SCH ×2 (08:22→19:58)
[2021-08-17] MEDS: HEPARIN/ 0.45% NACL DRIP 25,000 UNIT/500 ML BAG IV SCH (08:22)
[2021-08-17] MEDS: ASPIRIN EC 81 MG TAB PO SCH (09:20)
[2021-08-17] MEDS: FLUTICASONE PROPIONATE NASAL SPRAY 16 GM NS SCH (09:20)
[2021-08-17] MEDS: METOPROLOL TARTRATE 50 MG TAB PO SCH (09:21)
[2021-08-17] MEDS: CLOPIDOGREL 75 MG TAB PO SCH (09:22)
[2021-08-17] MEDS: FAMOTIDINE 20 MG TAB PO SCH ×2 (09:22→21:19)
--- NOTE | 2021-08-17 10:11 | Electrocardiograph Report ---
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
--- NOTE | 2021-08-17 10:11 | Electrocardiograph Report ---
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
[2021-08-17] MEDS: MORPHINE 2 MG/1 ML INJ IV PRN ×2 (12:56→19:58)
[2021-08-17 13:54] LABS: Hematocrit 35.5 % (35.5-45.6); Hemoglobin 11.7 gm/dl (11.8-15.2); Mean Corpuscular HGB Conc 33 % (32-34); Mean Corpuscular Volume 89 fl (84-94); Platelet Count 138 K/mm3 (140-440); Red Blood Count 3.99 M/mm3 (3.65-5.03); Red Cell Distribution Width 15.5 % (13.2-15.2)
[2021-08-17 14:12] LABS: INR 1.06 (0.87-1.13)
[2021-08-17 14:14] LABS: Partial Thromboplastin Time 46.2 Sec. (24.2-36.6)
--- NOTE | 2021-08-17 14:44 | Progress Note ---
Assessment and Plan Patient is a 66-year-old male with a past medical history of hypertension and arthritis who presented to the ED yesterday with a complaint of chest pain which started day prior to admission while watching TV. NSTEMI A. fib Coronary artery disease Hypertension Echo 08/15/2021-EF 55 to 60% mild concentric LVH. Right ventricular systolic function is mildly reduced. Right ventricle is normal in size mild tricuspid regurg Cardiac cath 08/15/[id number] LV with normal contractility with very small area of akinesis in the mid inferior wall. Occluded mid RCA with no antegrade or retrograde visualization of the distal vessel. Left coronary system showing mild to moderate disease. Balloon angioplasty of totally occluded RCA Plan: Cardiac cath canceled due to patient's renal function. Patient remains chest pain-free. Recommend medical management Continue Plavix, statin, and metoprolol 50 mg p.o. twice daily No CORDELL or ARB due to renal function Stop aspirin Stop heparin drip and convert to Eliquis for anticoagulation Plan of care discussed with patient who verbalized understanding and acknowledgment Cardiac status otherwise stable Patient should follow-up with Dr. Alberts, [facility] foreign broadcast specialist, on 09/08/2021 at 1 PM in our [place] location. Phone #[phone] Patient seen in conjunction with Dr. Alberts who agrees with this plan of care - Patient Problems (1) NSTEMI (non-ST elevated myocardial infarction) Current Visit: Yes Status: Acute (2) A-fib Current Visit: Yes Status: Acute (3) Coronary artery disease Current Visit: Yes Status: Acute (4) Abnormal EKG Current Visit: Yes Status: Acute (5) Chest pain Current Visit: Yes Status: Acute Subjective Date of service: 08/17/21 Principal diagnosis: NSTEMI Interval history: Patient resting in bed in no acute distress Patient transferred to the ICU overnight due to hypotension A. fib 60 to 70s on monitor Objective Vital Signs Temp Pulse Pulse Pulse Resp Resp BP 08/17/21 14:17 74 24 08/17/21 13:50 35 H 95/59 08/17/21 13:40 24 107/62 08/17/21 13:30 78 21 82/44 08/17/21 13:20 79 24 105/55 08/17/21 13:10 94 H 18 105/55 08/17/21 13:00 82 24 100/49 05/18/22 12:50 73 18 100/49 05/18/22 12:40 74 24 94/52 05/18/22 12:30 75 30 H 05/18/22 12:20 72 37 H 84/24 05/18/22 12:10 12 134/50 05/18/22 12:00 78 78 12 134/50 05/18/22 11:50 80 15 119/76 05/18/22 11:40 66 30 H 93/61 05/18/22 11:30 71 20 93/61 05/18/22 11:20 97.6 F 70 30 H 119/62 05/18/22 11:10 71 21 109/68 05/18/22 11:00 72 24 109/68 05/18/22 10:50 76 19 112/60 05/18/22 10:40 65 27 H 106/63 05/18/22 10:30 70 28 H 106/63 05/18/22 10:20 66 17 94/61 05/18/22 10:10 69 13 99/63 05/18/22 10:00 69 15 99/63 05/18/22 09:50 70 19 99/62 05/18/22 09:40 69 13 108/64 05/18/22 09:30 71 15 108/64 05/18/22 09:20 72 18 102/54 05/18/22 09:10 72 22 106/60 05/18/22 09:00 73 28 H 106/60 05/18/22 08:50 70 20 107/67 05/18/22 08:40 77 22 05/18/22 08:30 75 13 05/18/22 08:20 74 17 05/18/22 08:10 75 31 H 05/18/22 08:00 71 78 27 H 124/73 05/18/22 07:53 71 19 05/18/22 07:50 70 19 124/73 05/18/22 07:40 69 18 142/50 05/18/22 07:30 70 17 142/81 05/18/22 07:20 74 19 142/81 05/18/22 07:10 72 13 130/79 05/18/22 07:09 98.2 F 05/18/22 07:00 71 15 130/79 05/18/22 06:50 73 28 H 147/42 05/18/22 06:40 71 19 142/72 05/18/22 06:30 76 16 142/72 05/18/22 06:20 83 32 H 136/70 05/18/22 06:10 71 12 137/59 05/18/22 06:00 71 17 98/56 05/18/22 05:50 71 17 86/47 05/18/22 05:40 70 17 82/42 05/18/22 05:30 70 16 82/42 05/18/22 05:20 70 20 91/46 05/18/22 05:10 71 26 H 101/49 05/18/22 05:00 72 22 101/49 05/18/22 04:50 81 19 109/65 05/18/22 04:40 70 16 94/52 05/18/22 04:30 72 15 94/52 05/18/22 04:20 72 26 H 105/60 05/18/22 04:10 75 21 101/53 05/18/22 04:09 78 28 H 05/18/22 04:00 74 25 H 101/53 05/18/22 03:54 98.0 F 05/18/22 03:50 70 32 H 101/53 05/18/22 03:40 71 21 97/55 05/18/22 03:30 69 23 97/55 05/18/22 03:20 72 28 H 111/62 05/18/22 03:10 81 19 114/52 05/18/22 03:00 74 20 114/52 05/18/22 02:50 71 17 104/50 05/18/22 02:40 73 22 111/58 05/18/22 02:30 72 17 111/58 05/18/22 02:20 73 23 99/47 05/18/22 02:10 74 22 103/55 05/18/22 02:00 71 33 H 103/55 05/18/22 01:50 73 23 105/47 05/18/22 01:40 73 29 H 97/58 05/18/22 01:30 73 25 H 97/58 05/18/22 01:22 77 23 107/68 05/18/22 01:10 76 24 94/61 05/18/22 01:00 81 18 94/61 05/ 00:50 75 28 H 101/53 08/17/21 00:40 77 24 91/55 08/17/21 00:30 76 29 H 91/55 08/17/21 00:20 75 32 H 101/55 08/17/21 00:10 77 24 106/60 08/17/21 00:00 76 88 27 H 106/60 08/16/21 23:52 99.8 F H 08/16/21 23:50 81 25 H 109/88 08/16/21 23:40 88 37 H 188/130 08/16/21 23:30 79 22 188/130 08/16/21 23:20 73 33 H 188/130 08/16/21 23:10 78 18 188/130 08/16/21 23:00 76 25 H 118/67 08/16/21 22:50 79 15 118/67 08/16/21 22:40 77 21 109/76 08/16/21 22:30 76 15 109/76 08/16/21 22:20 76 17 101/69 08/16/21 22:10 76 22 115/77 08/16/21 22:03 72 08/16/21 22:00 71 26 H 115/77 08/16/21 21:56 73 18 08/16/21 21:55 08/16/21 21:50 70 24 95/62 08/16/21 21:40 73 20 102/44 08/16/21 21:30 70 21 117/53 08/16/21 21:20 70 32 H 84/51 08/16/21 21:15 71 98/53 08/16/21 21:10 71 16 98/53 08/16/21 21:00 70 23 98/53 08/16/21 20:50 70 17 95/55 08/16/21 20:40 72 27 H 08/16/21 20:30 72 96 H 19 08/16/21 20:00 97.9 F 08/16/21 19:03 97.5 F L 71 20 85/25 08/16/21 18:14 74 08/16/21 16:35 61 08/16/21 16:29 69 18 66/30 BP Pulse Ox 08/17/21 14:17 08/17/21 13:50 94 08/17/21 13:40 88 05/18/22 13:30 92 05/18/22 13:20 99 05/18/22 13:10 99 05/18/22 13:00 91 05/18/22 12:50 98 05/18/22 12:40 93 05/18/22 12:30 94 05/18/22 12:20 92 05/18/22 12:10 93 05/18/22 12:00 92 051822 11:50 94 05/18/22 11:40 100 05/18/22 11:30 05/18/22 11:20 95 05/18/22 11:10 96 05/18/22 11:00 94 05/18/22 10:50 05/18/22 10:40 97 05/18/22 10:30 97 051822 10:20 97 0518/22 10:10 92 051822 10:00 86 051822 09:50 97 051822 09:40 96 051822 09:30 95 051822 09:20 97 051822 09:10 65 L 051822 09:00 97 051822 08:50 99 05/18/22 08:40 97 05/18/22 08:30 100 0518/22 08:20 97 051822 08:10 99 051822 08:00 98 0518/22 07:53 051822 07:50 98 0518/22 07:40 94 0518/22 07:30 96 051822 07:20 95 051822 07:10 95 051822 07:09 051822 07:00 97 0518/22 06:50 97 05/18/22 06:40 93 05/18/22 06:30 96 05/18/22 06:20 93 0518/22 06:10 95 0518/22 06:00 96 0518/22 05:50 94 05/18/22 05:40 95 05/18/22 05:30 96 05/18/22 05:20 96 05/18/22 05:10 94 051822 05:00 92 05/18/22 04:50 96 05/18/22 04:40 95 05/18/22 04:30 94 05 04:20 95 05 04:10 95 05 04:09 94 05 04:00 91 08/17/21 03:54 05 03:50 96 08/17/21 03:40 96 08/17/21 03:30 96 08/17/21 03:20 97 08/17/21 03:10 08/17/21 03:00 90 08/17/21 02:50 94 08/17/21 02:40 92 05 02:30 95 08/17/21 02:20 98 08/17/21 02:10 97 08/17/21 02:00 95 08/17/21 01:50 98 08/17/21 01:40 98 08/17/21 01:30 98 08/17/21 01:22 96 08/17/21 01:10 97 08/17/21 01:00 94 08/17/21 00:50 93 08/17/21 00:40 92 08/17/21 00:30 93 05 00:20 95 08/17/21 00:10 96 08/17/21 00:00 94 08/16/21 23:52 05 23:50 05 23:40 0522 23:30 96 22 23:20 96 08/16/21 23:10 95 22 23:00 93 22 22:50 95 0522 22:40 95 051722 22:30 92 051722 22:20 78 L 051722 22:10 92 051722 22:03 22 22:00 92 051722 21:56 051722 21:55 94 051722 21:50 91 051722 21:40 96 051722 21:30 92 051722 21:20 89 051722 21:15 051722 21:10 93 051722 21:00 92 051722 20:50 93 051722 20:40 92 051722 20:30 92 0517/22 20:00 0522 19:03 91 08/16/21 18:14 91/54 08/16/21 16:35 79/39 08/16/21 16:29 92 - Physical Examination General: No Apparent Distress HEENT: Positive: Normocephaly Neck: Positive: trachea midline Cardiac: Positive: irregularly irregular Lungs: Positive: Normal Breath Sounds Neuro: Positive: Grossly Intact Abdomen: Positive: Soft, Active Bowel Sounds Skin: Negative: Rash, Suspicious Lesions, Ulceration Extremities: Present: upper extr. pulses. Absent: edema - Labs and Meds Coagulation 08/17/21 08/17/21 Range/Units 03:57 13:30 PT 14.3 15.0 H (12.2-14.9) Sec. INR 1.00 1.06 (0.87-1.13) APTT 46.2 H (24.2-36.6) Sec. CBC 08/17/21 08/17/21 Range/Units 03:57 13:30 WBC 9.5 10.4 (4.5-11.0) K/mm3 RBC 4.11 3.99 (3.65-5.03) M/mm3 Hgb 12.1 11.7 L (11.8-15.2) gm/dl Hct 37.3 35.5 (35.5-45.6) % Plt Count 111 L 138 L (140-440) K/mm3 Lymph # (Auto) 2.8 (1.2-5.4) K/mm3 [place] # (Auto) 1.4 H (0.0-0.8) K/mm3 Eos # (Auto) 0.1 (0.0-0.4) K/mm3 Baso # (Auto) 0.1 (0.0-0.1) K/mm3 Comprehensive Metabolic Panel 08/17/21 08/17/21 Range/Units 03:57 13:30 Sodium 138 (137-145) mmol/L Potassium 4.0 (3.6-5.0) mmol/L Chloride 103.6 (98-107) mmol/L Carbon Dioxide 17 L (22-30) mmol/L BUN 41 H (9-20) mg/dL Creatinine 1.6 H 1.4 H (0.8-1.3) mg/dL Glucose 119 H (75-100) mg/dL Calcium 8.3 L (8.4-10.2) mg/dL - Imaging and Cardiology Echo: report reviewed Cardiac cath: report reviewed - Telemetry EKG Rhythm: Atrial Fibrillation - EKG Supraventricular dysrhythmia: atrial fibrillation
--- NOTE | 2021-08-17 16:39 | Progress Note ---
Assessment and Plan Assessment and plan: This is a 66 year old male with HTN, arthiritis, COPD, current nicotine abuse admitted with NSTEMI, afib, nan Neuro: No acute distress -Avoid delirium -Reorientation as needed -Maintain sleep-wake cycle -aspiration/seizure precautions -As needed analgesia -PT/OT consulted, appreciate recommendations Cardiac: NSTEMI, A. fib, CAD, h/o HTN -Cardiology consulted, appreciate recommendations -08/15 patient was taken to [facility] and found to have occluded RCA -Aspirin, Plavix, statin, metoprolol -Aspirin stopped 08/17 -Heparin drip -Converted to Eliquis on 08/17 -Blood pressure monitoring per protocol -08/15/2021 echocardiogram shows EF of 55 to 60% -Cardiac cath tentatively scheduled for 08/17 -Increase in creatinine noted -Per cardiology patient will need to follow-up outpatient for cardiac cath -No CORDELL/ARB in setting of renal failure -Lipid panel noted Respiratory: Acute hypoxic respiratory failure, h/o COPD -Supplemental oxygen as needed -Pulmonary hygiene -SPO2 monitoring GI: MO -24 hours +418 ml -PPI -cardiac diet -Lifestyle modifications encouraged outpatient : Acute Kidney Injury likely secondary to vasomotor nephropathy, metabolic acidosis -Strict intake and output -Renally dose medications -Avoid nephrotoxic medications -Daily weights -MIVF -Trend BMP ID: NAD -f/u blood culture -Monitor WBC and temperature curve Endo: NAD -Avoid hypoglycemia Heme: Thrombocytopenia -Trend CBC -Transfuse hemoglobin less than 7 -Eliquis PO -Monitor for signs of bleeding -SCDs to BLE while in bed Critical Care Billing: The high probability of a clinically significant, sudden or life threatening deterioration of the [cardiac] system(s) required my full and direct attention, intervention and personal management. The aggregate critical care time was [60] minutes. This time is in addition to time spent performing reported procedures but includes the following: [x] Data Review and interpretation [x] Patient assessment and monitoring of vital signs [x] Documentation [x] Medication orders and management Disposition Plan: transfer to floor Total Time Spent with Patient (Minutes): 60 History Interval history: This is a 66-year-old male with HTN, arthritis, COPD, current nicotine abuse presented to emergency department on 08/15 with complaints of substernal chest pain described as pressure-like that was nonradiating 8/10 in severity associated with shortness of breath, palpitation and diaphoresis. Work-up emergency department included a CXR which was unremarkable and lab work showed elevated troponin at 0.348. ECG at 2319 showed concerning findings and Dr. Toro was consulted in the ED. Patient was started on aspirin, sublingual nitroglycerin and heparin drip and admitted to the hospitalist service with a consult to cardiology. Hospital course to date: 08/16: transfer to ICU for hypotension despite IVF 08/17: transfer to floor, cardiac cath cancelled for today and will need to follow up outpatient. Trend BMP and continue IVF. Decrease in metoprolol Hospitalist Physical - Constitutional Vitals: Temp Pulse Resp BP Pulse Ox 97.6 F 73 30 H 79/56 97 08/17/21 11:20 08/17/21 16:01 08/17/21 16:01 08/17/21 16:01 08/17/21 16:01 General appearance: Present: no acute distress, obese - EENT Eyes: Present: PERRL, EOM intact - Neck Neck: Present: normal ROM - Respiratory Respiratory effort: normal Respiratory: bilateral: diminished - Cardiovascular Rhythm: regular Heart Sounds: Present: S1 & S2. Absent: systolic murmur, diastolic murmur - Extremities Extremities: no ischemia, pulses intact, pulses symmetrical, No edema, normal temperature, normal color Peripheral Pulses: within normal limits - Abdominal General gastrointestinal: soft, non-tender, non-distended, normal bowel sounds - Integumentary Integumentary: Present: clear, warm, dry - Psychiatric Psychiatric: cooperative - Neurologic Neurologic: CNII-XII intact, no focal deficits, moves all extremities - Allied Health Allied health notes reviewed: nursing, PT, OT, social work HEART Score - HEART Score Troponin: Troponin T 7.110 ng/mL (0.00-0.029) H* 08/16/21 04:51 Results - Labs CBC & Chem 7: 08/17/21 13:30 08/17/21 13:30 Labs: Laboratory Last Values WBC 10.4 K/mm3 (4.5-11.0) 08/17/21 13:30 RBC 3.99 M/mm3 (3.65-5.03) 08/17/21 13:30 Hgb 11.7 gm/dl (11.8-15.2) L 08/17/21 13:30 Hct 35.5 % (35.5-45.6) 08/17/21 13:30 MCV 89 fl (84-94) 08/17/21 13:30 MCH 29 pg (28-32) 08/17/21 13:30 MCHC 33 % (32-34) 08/17/21 13:30 RDW 15.5 % (13.2-15.2) H 08/17/21 13:30 Plt Count 138 K/mm3 (140-440) L 08/17/21 13:30 Lymph % (Auto) 29.5 % (13.4-35.0) 08/17/21 03:57 [place] % (Auto) 14.6 % (0.0-7.3) H 08/17/21 03:57 Eos % (Auto) 0.9 % (0.0-4.3) 08/17/21 03:57 Baso % (Auto) 0.6 % (0.0-1.8) 08/17/21 03:57 Lymph # (Auto) 2.8 K/mm3 (1.2-5.4) 08/17/21 03:57 [place] # (Auto) 1.4 K/mm3 (0.0-0.8) H 08/17/21 03:57 Eos # (Auto) 0.1 K/mm3 (0.0-0.4) 08/17/21 03:57 Baso # (Auto) 0.1 K/mm3 (0.0-0.1) 08/17/21 03:57 Add Manual Diff Complete 08/16/21 03:53 Total Counted 100 08/16/21 03:53 Seg Neutrophils % 54.4 % (40.0-70.0) 08/17/21 03:57 Seg Neuts % (Manual) 74.0 % (40.0-70.0) H 08/16/21 03:53 Band Neutrophils % 0 % 08/16/21 03:53 Lymphocytes % (Manual) 17.0 % (13.4-35.0) 08/16/21 03:53 Reactive Lymphs % (Man) 0 % 08/16/21 03:53 Monocytes % (Manual) 8.0 % (0.0-7.3) H 08/16/21 03:53 Eosinophils % (Manual) 1.0 % (0.0-4.3) 08/16/21 03:53 Basophils % (Manual) 0 % (0.0-1.8) 08/16/21 03:53 Metamyelocytes % 0 % 08/16/21 03:53 Myelocytes % 0 % 08/16/21 03:53 Promyelocytes % 0 % 08/16/21 03:53 Blast Cells % 0 % 08/16/21 03:53 Nucleated RBC % 1.0 % (0.0-0.9) H 08/16/21 03:53 Seg Neutrophils # 5.2 K/mm3 (1.8-7.7) 08/17/21 03:57 Seg Neutrophils # Man 8.2 K/mm3 (1.8-7.7) H 08/16/21 03:53 Band Neutrophils # 0.0 K/mm3 08/16/21 03:53 Lymphocytes # (Manual) 1.9 K/mm3 (1.2-5.4) 08/16/21 03:53 Abs React Lymphs (Man) 0.0 K/mm3 08/16/21 03:53 Monocytes # (Manual) 0.9 K/mm3 (0.0-0.8) H 08/16/21 03:53 Eosinophils # (Manual) 0.1 K/mm3 (0.0-0.4) 08/16/21 03:53 Basophils # (Manual) 0.0 K/mm3 (0.0-0.1) 08/16/21 03:53 Metamyelocytes # 0.0 K/mm3 08/16/21 03:53 Myelocytes # 0.0 K/mm3 08/16/21 03:53 Promyelocytes # 0.0 K/mm3 08/16/21 03:53 Blast Cells # 0.0 K/mm3 08/16/21 03:53 WBC Morphology Not Reportable 08/16/21 03:53 Hypersegmented Neuts Not Reportable 08/16/21 03:53 Hyposegmented Neuts Not Reportable 08/16/21 03:53 Hypogranular Neuts Not Reportable 08/16/21 03:53 Smudge Cells Not Reportable 08/16/21 03:53 Toxic Granulation Not Reportable 08/16/21 03:53 Toxic Vacuolation Not Reportable 08/16/21 03:53 Dohle Bodies Not Reportable 08/16/21 03:53 Pelger-Huet Anomaly Not Reportable 08/16/21 03:53 Anthony Rods Not Reportable 08/16/21 03:53 Platelet Estimate Consistent w auto 08/16/21 03:53 Clumped Platelets Not Reportable 08/16/21 03:53 Plt Clumps, EDTA Not Reportable 08/16/21 03:53 Large Platelets Not Reportable 08/16/21 03:53 Giant Platelets Not Reportable 08/16/21 03:53 Platelet Satelliting Not Reportable 08/16/21 03:53 Plt Morphology Comment Not Reportable 08/16/21 03:53 RBC Morphology Not Reportable 08/16/21 03:53 Dimorphic RBCs Not Reportable 08/16/21 03:53 Polychromasia Not Reportable 08/16/21 03:53 Hypochromasia Not Reportable 08/16/21 03:53 Poikilocytosis Not Reportable 08/16/21 03:53 Anisocytosis 1+ 08/16/21 03:53 Microcytosis Not Reportable 08/16/21 03:53 Macrocytosis Not Reportable 08/16/21 03:53 Spherocytes Not Reportable 08/16/21 03:53 Pappenheimer Bodies Not Reportable 08/16/21 03:53 Sickle Cells Not Reportable 08/16/21 03:53 Target Cells Not Reportable 08/16/21 03:53 Tear Drop Cells Not Reportable 08/16/21 03:53 Ovalocytes Not Reportable 08/16/21 03:53 Helmet Cells Not Reportable 08/16/21 03:53 Bustos-Vici Bodies Not Reportable 08/16/21 03:53 Mingus Rings Not Reportable 08/16/21 03:53 Betzaida Cells Not Reportable 08/16/21 03:53 Bite Cells Not Reportable 08/16/21 03:53 Crenated Cell Not Reportable 08/16/21 03:53 Elliptocytes Not Reportable 08/16/21 03:53 Acanthocytes (Spur) Not Reportable 08/16/21 03:53 Rouleaux Not Reportable 08/16/21 03:53 Hemoglobin C Crystals Not Reportable 08/16/21 03:53 Schistocytes Not Reportable 08/16/21 03:53 Malaria parasites Not Reportable 08/16/21 03:53 Tyson Bodies Not Reportable 08/16/21 03:53 Hem Pathologist Commnt No 08/16/21 03:53 PT 15.0 Sec. (12.2-14.9) H 08/17/21 13:30 INR 1.06 (0.87-1.13) 08/17/21 13:30 APTT 46.2 Sec. (24.2-36.6) H 08/17/21 13:30 Heparin Anti-Xa Level 0.27 U.I./ml (0.3-0.7) L 08/17/21 12:11 Sodium 138 mmol/L (137-145) 08/17/21 03:57 Potassium 4.0 mmol/L (3.6-5.0) 08/17/21 03:57 Chloride 103.6 mmol/L (98-107) 08/17/21 03:57 Carbon Dioxide 17 mmol/L (22-30) L 08/17/21 03:57 Anion Gap 21 mmol/L 08/17/21 03:57 BUN 41 mg/dL (9-20) H 08/17/21 03:57 Creatinine 1.4 mg/dL (0.8-1.3) H 08/17/21 13:30 Estimated GFR > 60 ml/min 08/17/21 13:30 BUN/Creatinine Ratio 26 % 08/17/21 03:57 Glucose 119 mg/dL (75-100) H 08/17/21 03:57 POC Glucose 110 mg/dL (70-105) H 08/17/21 10:57 Calcium 8.3 mg/dL (8.4-10.2) L 08/17/21 03:57 Total Bilirubin 0.60 mg/dL (0.1-1.2) 08/14/21 23:39 AST 70 units/L (5-40) H 08/14/21 23:39 ALT 43 units/L (7-56) 08/14/21 23:39 Alkaline Phosphatase 42 units/L (35-129) 08/14/21 23:39 Troponin T 7.110 ng/mL (0.00-0.029) H* 08/16/21 04:51 Total Protein 7.9 g/dL (6.3-8.2) 08/14/21 23:39 Albumin 4.4 g/dL (3.9-5) 08/14/21 23:39 Albumin/Globulin Ratio 1.3 % 08/14/21 23:39 Triglycerides 334 mg/dL (2-149) H 08/14/21 23:39 Cholesterol 224 mg/dL (50-199) H 08/14/21 23:39 LDL Cholesterol Direct 145 mg/dL (50-130) H 08/14/21 23:39 HDL Cholesterol 35 mg/dL (40-59) L 08/14/21 23:39 Cholesterol/HDL Ratio 6.40 % 08/14/21 23:39 Millard/IV: Voiding Method Urinal Active Medications - Current Medications Current Medications: Generic Name Dose Route Start Last Admin Trade Name Freq PRN Reason Stop Dose Admin Acetaminophen 650 mg 08/15/21 01:47 Acetaminophen 325 Mg Tab PO Q4H PRN Pain MILD(1-3)/Fever >100.5/FLORES Hydrocodone Bitart/Acetaminophen 1 each 08/15/21 12:40 08/15/21 13:34 Hydrocodone/Acetaminophen 5-325 Mg Tab PO 1 each Q4H PRN Administration Pain, Moderate (4-6) Albuterol 2.5 mg 08/15/21 12:00 Albuterol 2.5 Mg/3 Ml Nebu IH Q2HRT PRN Shortness Of Breath Albuterol/Ipratropium 1 ampul 08/16/21 08:00 08/17/21 14:17 Ipratropium/Albuterol Sulfate 3 Ml Ampul.Neb IH 1 ampul TIDRT ALEJANDRA Administration Alprazolam 0.5 mg 08/15/21 10:00 08/16/21 03:59 Alprazolam 0.5 Mg Tab PO 0.5 mg BID PRN Administration Anxiety Apixaban 5 mg 08/17/21 22:00 Apixaban 5 Mg Tab PO Q12HR ALEJANDRA Protocol Atorvastatin Calcium 40 mg 08/15/21 22:00 08/16/21 21:03 Atorvastatin 40 Mg Tab PO 40 mg QHS ALEJANDRA Administration Clopidogrel Bisulfate 75 mg 08/16/21 10:00 08/17/21 09:22 Clopidogrel 75 Mg Tab PO 75 mg QDAY ALEJANDRA Administration Cyclobenzaprine HCl 10 mg 08/15/21 09:30 08/16/21 17:00 Cyclobenzaprine 10 Mg Tab PO 10 mg TID PRN Administration Muscle Spasm Famotidine 20 mg 08/15/21 10:00 08/17/21 09:22 Famotidine 20 Mg Tab PO 20 mg BID ALEJANDRA Administration Fluticasone Propionate 100 mcg 08/15/21 10:00 08/17/21 09:20 Fluticasone Propionate Nasal [place] 16 Gm NS 100 mcg QDAY ALEJANDRA Administration Sodium Chloride 1,000 mls @ 75 mls/hr 08/16/21 13:00 08/17/21 08:22 Nacl 0.9% 1000 Ml IV 75 mls/hr DIRECT ALEJANDRA Administration Magnesium Hydroxide 30 ml 08/15/21 01:47 Magnesium Hydroxide (Mom) Oral Liqd Udc PO Q4H PRN Constipation Metoprolol Tartrate 25 mg 08/17/21 22:00 Metoprolol Tartrate 25 Mg Tab PO BID ALEJANDRA Morphine Sulfate 2 mg 08/15/21 01:47 08/17/21 12:56 Morphine 2 Mg/1 Ml Inj IV 2 mg Q4H PRN Administration Pain, Moderate (4-6) Morphine Sulfate 2 mg 08/15/21 01:47 08/16/21 22:12 Morphine 4 Mg/1 Ml Inj IV 2 mg Q5MIN PRN Administration Chest Pain unrelieved by NTG Ondansetron HCl 4 mg 08/15/21 01:47 Ondansetron 4 Mg/2 Ml Inj IV Q8H PRN Nausea And Vomiting Sodium Chloride 10 ml 08/15/21 10:00 08/17/21 09:22 Sodium Chloride 0.9% 10 Ml Flush Syringe IV 10 ml BID ALEJANDRA Administration Sodium Chloride 10 ml 08/15/21 01:47 Sodium Chloride 0.9% 10 Ml Flush Syringe IV PRN PRN LINE FLUSH
[2021-08-17] MEDS: APIXABAN 5 MG TAB PO SCH (21:19)
[2021-08-17] MEDS: METOPROLOL TARTRATE 25 MG TAB PO SCH (21:19)
[2021-08-18 06:25] LABS: Hematocrit 36.2 % (35.5-45.6); Hemoglobin 11.5 gm/dl (11.8-15.2); Mean Corpuscular HGB Conc 32 % (32-34); Mean Corpuscular Volume 91 fl (84-94); Platelet Count 117 K/mm3 (140-440); Red Cell Distribution Width 15.8 % (13.2-15.2)
[2021-08-18 06:40] LABS: BUN/Creatinine Ratio 26; Blood Urea Nitrogen 36 mg/dL (9-20); Hemolysis Index 0
[2021-08-18] MEDS: APIXABAN 5 MG TAB PO SCH ×2 (09:06→21:02)
[2021-08-18] MEDS: METOPROLOL TARTRATE 25 MG TAB PO SCH ×2 (09:07→21:02)
[2021-08-18] MEDS: FLUTICASONE PROPIONATE NASAL SPRAY 16 GM NS SCH (09:07)
[2021-08-18] MEDS: FAMOTIDINE 20 MG TAB PO SCH ×2 (09:07→21:02)
[2021-08-18] MEDS: MORPHINE 2 MG/1 ML INJ IV PRN (09:08)
[2021-08-18] MEDS: CLOPIDOGREL 75 MG TAB PO SCH (09:08)
[2021-08-18] MEDS: IPRATROPIUM/ALBUTEROL SULFATE 3 ML AMPUL.NEB IH SCH ×3 (09:49→21:32)
--- NOTE | 2021-08-18 12:02 | Progress Note ---
Assessment and Plan Patient is a 66-year-old male with a past medical history of hypertension and arthritis who presented to the ED yesterday with a complaint of chest pain which started day prior to admission while watching TV. NSTEMI A. fib Coronary artery disease Hypertension Echo 08/15/2021-EF 55 to 60% mild concentric LVH. Right ventricular systolic function is mildly reduced. Right ventricle is normal in size mild tricuspid regurg Cardiac cath 08/15/[id number] LV with normal contractility with very small area of akinesis in the mid inferior wall. Occluded mid RCA with no antegrade or retrograde visualization of the distal vessel. Left coronary system showing mild to moderate disease. Balloon angioplasty of totally occluded RCA Plan: Patient remains chest pain-free and BP has improved. Continue medical management Continue Plavix, statin, and metoprolol 25 mg p.o. twice daily No CORDELL or ARB due to renal function Continue Eliquis for anticoagulation Plan of care discussed with patient who verbalized understanding and acknowledgment Cardiac status otherwise stable Patient should follow-up with Dr. Alberts, [facility] network specialist, on 09/08/2021 at 1 PM in our [place] location. Phone #[phone] Patient seen in conjunction with Dr. Alberts who agrees with this plan of care - Patient Problems (1) NSTEMI (non-ST elevated myocardial infarction) Current Visit: Yes Status: Acute (2) A-fib Current Visit: Yes Status: Acute (3) Coronary artery disease Current Visit: Yes Status: Acute (4) Abnormal EKG Current Visit: Yes Status: Acute (5) Chest pain Current Visit: Yes Status: Acute Subjective Date of service: 08/18/21 Principal diagnosis: NSTEMI Interval history: Patient resting in bed in no acute distress Patient transferred to [facility] Has been noncompliant however previously sinus 60 to 70s on monitor Objective Vital Signs Temp Pulse Pulse Pulse Resp Resp BP 08/18/21 11:51 98.0 F 98 H 08/18/21 10:40 84 08/18/21 10:00 84 26 H 08/18/21 09:50 08/18/21 09:08 29 H 08/18/21 09:07 71 118/74 08/18/21 08:10 98.6 F 71 18 08/18/21 08:00 91 H 18 08/18/21 06:00 70 05/19/22 03:27 98.6 F 70 20 103/66 05/19/22 00:30 69 26 H 112/65 05/19/22 00:00 70 79 26 H 104/64 05/18/22 23:31 67 21 91/46 05/18/22 23:00 68 35 H 96/52 05/18/22 22:31 71 36 H 120/58 05/18/22 22:17 73 21 120/58 05/18/22 22:01 76 25 H 120/58 05/18/22 22:00 74 05/18/22 21:31 80 17 128/72 05/18/22 21:03 73 26 H 05/18/22 20:45 75 22 122/74 05/18/22 20:30 74 71 21 20 117/66 05/18/22 20:15 75 16 105/69 05/18/22 20:00 76 76 24 99/65 05/18/22 19:46 76 19 99/65 05/18/22 19:30 76 21 122/58 05/18/22 19:15 78 25 H 117/63 05/18/22 19:00 77 15 117/62 05/18/22 18:50 76 23 114/64 05/18/22 18:40 79 22 107/68 05/18/22 18:30 75 21 107/68 05/18/22 18:20 75 21 107/59 05/18/22 18:10 75 14 74/44 05/18/22 18:00 74 28 H 74/44 05/18/22 17:50 76 19 100/65 05/18/22 17:40 82 21 90/52 05/18/22 17:39 98.5 F 05/18/22 17:30 76 19 90/52 05/18/22 17:20 76 22 89/48 05/18/22 17:10 78 20 96/46 05/18/22 17:00 73 25 H 100/40 05/18/22 16:50 75 22 100/40 05/18/22 16:40 74 28 H 85/56 05/18/22 16:30 75 24 85/56 05/18/22 16:20 76 23 95/63 05/18/22 16:10 76 21 79/56 05/18/22 16:01 73 30 H 79/56 05/18/22 16:00 78 28 H 05 15:50 75 20 95/55 05/18/22 15:40 81 20 90/51 [id number] 15:30 76 22 85/61 05/18/22 15:20 75 25 H 85/61 05/18/22 15:10 78 29 H 82/52 05/18/22 15:00 79 30 H 89/54 05/18/22 14:50 79 16 89/54 0518/22 14:40 81 27 H 89/54 05/18/22 14:30 76 17 89/54 0518/22 14:20 75 22 89/54 0518/ 14:17 74 24 05 14:10 84 21 89/54 05 14:00 76 89/54 [id number] 13:50 35 H 95/59 [id number] 13:40 24 107/62 05 13:30 78 21 82/44 05 13:20 79 24 105/55 05 13:10 94 H 18 105/55 05 13:00 82 24 100/49 05 12:50 73 18 100/49 08/17/21 12:40 74 24 94/52 08/17/21 12:30 75 30 H 08/17/21 12:20 72 37 H 84/24 08/17/21 12:10 12 134/50 BP Pulse Ox 08/18/21 11:51 110/67 08/18/21 10:40 08/18/21 10:00 96 08/18/21 09:50 95 08/18/21 09:08 08/18/21 09:07 08/18/21 08:10 118/74 90 08/18/21 08:00 08/18/21 06:00 08/18/21 03:27 90 08/18/21 00:30 94 08/18/21 00:00 95 08/17/21 23:31 95 08/17/21 23:00 91 08/17/21 22:31 08/17/21 22:17 88 08/17/21 22:01 08/17/21 22:00 97 08/17/21 21:31 90 08/17/21 21:03 90 05/18/22 20:45 08/17/21 20:30 08/17/21 20:15 08/17/21 20:00 91 08/17/21 19:46 97 08/17/21 19:30 98 08/17/21 19:15 98 08/17/21 19:00 97 08/17/21 18:50 99 08/17/21 18:40 98 08/17/21 18:30 97 08/17/21 18:20 98 08/17/21 18:10 68 L 08/17/21 18:00 95 08/17/21 17:50 81 L 08/17/21 17:40 76 L 08/17/21 17:39 08/17/21 17:30 92 08/17/21 17:20 90 08/17/21 17:10 91 08/17/21 17:00 98 08/17/21 16:50 88 08/17/21 16:40 82 L 08/17/21 16:30 82 L 08/17/21 16:20 79 L 08/17/21 16:10 92 08/17/21 16:01 97 08/17/21 16:00 94 08/17/21 15:50 75 L 08/17/21 15:40 92 08/17/21 15:30 96 08/17/21 15:20 98 08/17/21 15:10 97 08/17/21 15:00 84 08/17/21 14:50 08/17/21 14:40 84 08/17/21 14:30 95 08/17/21 14:20 95 08/17/21 14:17 08/17/21 14:10 94 08/17/21 14:00 94 08/17/21 13:50 94 08/17/21 13:40 88 08/17/21 13:30 92 08/17/21 13:20 99 08/17/21 13:10 99 08/17/21 13:00 91 08/17/21 12:50 98 08/17/21 12:40 93 08/17/21 12:30 94 08/17/21 12:20 92 08/17/21 12:10 93 - Physical Examination General: No Apparent Distress HEENT: Positive: Normocephaly Neck: Positive: trachea midline Cardiac: Positive: Reg Rate and Rhythm Lungs: Positive: Normal Breath Sounds Neuro: Positive: Grossly Intact Abdomen: Positive: Soft, Active Bowel Sounds Skin: Negative: Rash, Suspicious Lesions, Ulceration Extremities: Present: upper extr. pulses. Absent: edema - Labs and Meds Coagulation 08/17/21 Range/Units 13:30 PT 15.0 H (12.2-14.9) Sec. INR 1.06 (0.87-1.13) APTT 46.2 H (24.2-36.6) Sec. CBC 08/17/21 08/18/21 Range/Units 13:30 04:55 WBC 10.4 7.7 (4.5-11.0) K/mm3 RBC 3.99 4.00 (3.65-5.03) M/mm3 Hgb 11.7 L 11.5 L (11.8-15.2) gm/dl Hct 35.5 36.2 (35.5-45.6) % Plt Count 138 L 117 L (140-440) K/mm3 Comprehensive Metabolic Panel 08/17/21 08/18/21 Range/Units 13:30 04:55 Sodium 139 (137-145) mmol/L Potassium 3.6 (3.6-5.0) mmol/L Chloride 104.9 (98-107) mmol/L Carbon Dioxide 15 L (22-30) mmol/L BUN 36 H (9-20) mg/dL Creatinine 1.4 H 1.4 H (0.8-1.3) mg/dL Glucose 148 H (75-100) mg/dL Calcium 8.0 L (8.4-10.2) mg/dL - Imaging and Cardiology Echo: report reviewed Cardiac cath: report reviewed - Telemetry EKG Rhythm: Sinus Rhythm - EKG Sinus rhythms and dysrhythmias: sinus rhythm
--- NOTE | 2021-08-18 13:01 | Discharge Summary ---
Providers - Providers Date of Admission: 08/15/21 01:48 Date of discharge: 08/18/21 Attending physician: JASON VALENCIA MD 08/15/21 Consult to Cardiac Rehabilitation [CONS] Routine Reason For Exam: Phase I 08/15/21 01:48 Consult to Cardiology [CONS] Routine Consulting Provider: KRISTY POWERS Reason For Exam: Chest Pain. NSTEMI 08/16/21 09:57 Occupational Therapy Evaluate and Treat [CONS] Urgent Comment: Reason For Exam: OT to eval and treat Physical Therapy Evaluation and Treat [CONS] Urgent Comment: Reason For Exam: PT to eval and treat 08/18/21 09:03 Consult to Case Management [CONS] Routine Services Needed at Discharge: Home O2 Notified:: Case management Primary care physician: SANDI DELEON JR, HEMATOLOGY NURSE EDUCATOR Hospitalization Reason for admission: shortness of breath Condition: Stable Hospital course: HPI per admitter This is a 66-year-old male with HTN, arthritis, COPD, current nicotine abuse presented to emergency department on 08/15 with complaints of substernal chest pain described as pressure-like that was nonradiating 11/09 in severity associa tara with shortness of breath, palpitation and diaphoresis. Work-up emergency department included a CXR which was unremarkable and lab work showed elevated troponin at 0.348. ECG at 2319 showed concerning findings and Dr. Toro was consulted in the ED. Patient was started on aspirin, sublingual nitroglycerin and heparin drip and admitted to the hospitalist service with a consult to cardiology. Admitted to our facility for NSTEMI Hospital course to date: 08/16: transfer to ICU for hypotension despite IVF 08/17: transfer to floor, cardiac cath cancelled for today and will need to follow up outpatient. Trend BMP and continue IVF. Decrease in metoprolol 08/18: Awaiting home oxygen set up as patient qualifies after desatting to 87% during walk test. Plan for follow OP with [facility] Dr. Powers OP. Will be d/c home with home health care. Advise to hold losartan/hctz and meloxicam due to renal impairment. rx for atrovastatin, metoprolol, eliquis and plavix e- sribed to pharmacy. Will need OP BMP to check renal function. Neuro: No acute distress -Avoid delirium -Reorientation as needed -Maintain sleep-wake cycle -aspiration/seizure precautions -As needed analgesia -PT/OT consulted, appreciate recommendations Cardiac: NSTEMI, A. fib, CAD, h/o HTN -Cardiology consulted, appreciate recommendations -08/15 patient was taken to Nurse Substance Abuse and found to have occluded RCA -Aspirin, Plavix, statin, metoprolol -Aspirin stopped 08/17 -Heparin drip -Converted to Eliquis on 08/17 -Blood pressure monitoring per protocol -08/15/2021 echocardiogram shows EF of 55 to 60% -Cardiac cath tentatively scheduled for 08/17 -Increase in creatinine noted -Per cardiology patient will need to follow-up outpatient for cardiac cath -No CORDELL/ARB in setting of renal failure -Lipid panel noted Respiratory: Acute hypoxic respiratory failure, h/o COPD -Supplemental oxygen as needed -Pulmonary hygiene -SPO2 monitoring GI: MO -24 hours +418 ml -PPI -cardiac diet -Lifestyle modifications encouraged outpatient : Acute Kidney Injury likely secondary to vasomotor nephropathy, metabolic acidosis -Strict intake and output -Renally dose medications -Avoid nephrotoxic medications -Daily weights -MIVF -Trend BMP ID: NAD -f/u blood culture -Monitor WBC and temperature curve Endo: NAD -Avoid hypoglycemia Heme: Thrombocytopenia -Trend CBC -Transfuse hemoglobin less than 7 -Eliquis PO -Monitor for signs of bleeding -SCDs to BLE while in bed Disposition: 01 HOME / SELF CARE / HOMELESS Final Discharge Diagnosis (Prints w/discharge instructions): acute hypoxic respiratory failure, NSTEMI Time spent for discharge: 35 Core Measure Documentation - Palliative Care Palliative Care/ Comfort Measures: Not Applicable - Core Measures Any of the following diagnoses?: acute CO - Acute CO Discharge Requirements Aspirin at discharge: Yes CORDELL/ARB for LVSD if EF <40%: No Reason for no CORDELL/ARB: Renal impairment Beta miranda at discharge: Yes Statin for LDL = or >100 mg/dl on DC: Yes Exam - Physical Exam Narrative exam: General appearance: Present: no acute distress, obese - EENT Eyes: Present: PERRL, EOM intact - Neck Neck: Present: normal ROM - Respiratory Respiratory effort: normal Respiratory: bilateral: diminished - Cardiovascular Rhythm: regular Heart Sounds: Present: S1 & S2. Absent: systolic murmur, diastolic murmur - Extremities Extremities: no ischemia, pulses intact, pulses symmetrical, No edema, normal temperature, normal color Peripheral Pulses: within normal limits - Abdominal General gastrointestinal: soft, non-tender, non-distended, normal bowel sounds - Integumentary Integumentary: Present: clear, warm, dry - Psychiatric Psychiatric: cooperative - Neurologic Neurologic: CNII-XII intact, no focal deficits, moves all extremities - Allied Health Allied health notes reviewed: nursing, PT, OT, social work - Constitutional Vitals: Temp Pulse Resp BP Pulse Ox 98.0 F 98 H 26 H 110/67 96 08/18/21 11:51 08/18/21 11:51 08/18/21 10:00 08/18/21 11:51 08/18/21 10:00 Plan Follow up with: SANDI DELEON JR HEMATOLOGY NURSE EDUCATOR [Primary Care Provider] - 7 Days KRISTY POWERS MD [Staff Physician] - 7 Days Prescriptions: AtorvaSTATin [Lipitor] 40 mg PO QHS 30 Days #30 tablet Apixaban [Eliquis] 5 mg PO Q12HR 30 Days #60 tablet Metoprolol [Lopressor TAB] 25 mg PO BID 30 Days #60 tablet Clopidogrel [Plavix] 75 mg PO QDAY 30 Days #30 tablet
[2021-08-18] MEDS: HYDROcodone/ACETAMINOPHEN 5-325 MG TAB PO PRN ×2 (15:40→21:02)
[2021-08-18] MEDS: ALPRAZolam 0.5 MG TAB PO PRN (21:03)
[2021-08-19 07:46] LABS: Hematocrit 33.3 % (35.5-45.6); Hemoglobin 11.4 gm/dl (11.8-15.2); Mean Corpuscular HGB Conc 34 % (32-34); Mean Corpuscular Volume 88 fl (84-94); Platelet Count 144 K/mm3 (140-440); Red Blood Count 3.79 M/mm3 (3.65-5.03); Red Cell Distribution Width 15.4 % (13.2-15.2)
[2021-08-19 08:08] VITALS: BP 150/76
[2021-08-19] MEDS: METOPROLOL TARTRATE 25 MG TAB PO SCH (09:11)
[2021-08-19] MEDS: CLOPIDOGREL 75 MG TAB PO SCH (09:11)
[2021-08-19] MEDS: APIXABAN 5 MG TAB PO SCH (09:11)
[2021-08-19] MEDS: ALPRAZolam 0.5 MG TAB PO PRN (09:11)
[2021-08-19] MEDS: FAMOTIDINE 20 MG TAB PO SCH (09:11)
[2021-08-19] MEDS: IPRATROPIUM/ALBUTEROL SULFATE 3 ML AMPUL.NEB IH SCH ×2 (09:22→13:51)
--- NOTE | 2021-08-19 09:25 | Progress Note ---
Assessment and Plan Assessment and plan: This is a 66-year-old male with HTN, arthritis, COPD, current nicotine abuse presented to emergency department on 08/15 with complaints of substernal chest pain described as pressure-like that was nonradiating 11/09 in severity associated with shortness of breath, palpitation and diaphoresis. Work-up [facility] department included a CXR which was unremarkable and lab work showed elevated troponin at 0.348. ECG at 2319 showed concerning findings and Dr. Toro was consulted in the ED. Patient was started on aspirin, sublingual nitroglycerin and heparin drip and admitted to the hospitalist service with a consult to cardiology. Admitted to our facility for NSTEMI Hospital course to date: 08/16: transfer to ICU for hypotension despite IVF 08/17: transfer to floor, cardiac cath cancelled for today and will need to follow up outpatient. Trend BMP and continue IVF. Decrease in metoprolol 08/18: Awaiting home oxygen set up as patient qualifies after desatting to 87% d uring walk test. Plan for follow OP with [facility] Dr. Alberts OP. Will be d/c home with home health care. Advise to hold losartan/hctz and meloxicam due to renal impairment. rx for atrovastatin, metoprolol, eliquis and plavix e- sribed to pharmacy. Will need OP BMP to check renal function. 08/19: Awaiting home oxygen set up. can d/c home after. Neuro: No acute distress -Avoid delirium -Reorientation as needed -Maintain sleep-wake cycle -aspiration/seizure precautions -As needed analgesia -PT/OT consulted, appreciate recommendations Cardiac: NSTEMI, A. fib, CAD, h/o HTN -Cardiology consulted, appreciate recommendations -08/15 patient was taken to [facility] and found to have occluded RCA -Aspirin, Plavix, statin, metoprolol -Aspirin stopped 08/17 -Heparin drip -Converted to Eliquis on 08/17 -Blood pressure monitoring per protocol -08/15/2021 echocardiogram shows EF of 55 to 60% -Cardiac cath tentatively scheduled for 08/17 -Increase in creatinine noted -Per cardiology patient will need to follow-up outpatient for cardiac cath -No CORDELL/ARB in setting of renal failure -Lipid panel noted Respiratory: Acute hypoxic respiratory failure, h/o COPD -Supplemental oxygen as needed -Pulmonary hygiene -SPO2 monitoring GI: MO -24 hours +418 ml -PPI -cardiac diet -Lifestyle modifications encouraged outpatient : Acute Kidney Injury likely secondary to vasomotor nephropathy, metabolic acidosis -Strict intake and output -Renally dose medications -Avoid nephrotoxic medications -Daily weights -MIVF -Trend BMP ID: NAD -f/u blood culture -Monitor WBC and temperature curve Endo: NAD -Avoid hypoglycemia Heme: Thrombocytopenia -Trend CBC -Transfuse hemoglobin less than 7 -Eliquis PO -Monitor for signs of bleeding -SCDs to BLE while in bed History Interval history: No complaints. Hospitalist Physical - Physical exam Narrative exam: General appearance: Present: no acute distress, obese - EENT Eyes: Present: PERRL, EOM intact - Neck Neck: Present: normal ROM - Respiratory Respiratory effort: normal Respiratory: bilateral: diminished - Cardiovascular Rhythm: regular Heart Sounds: Present: S1 & S2. Absent: systolic murmur, diastolic murmur - Extremities Extremities: no ischemia, pulses intact, pulses symmetrical, No edema, normal temperature, normal color Peripheral Pulses: within normal limits - Abdominal General gastrointestinal: soft, non-tender, non-distended, normal bowel sounds - Integumentary Integumentary: Present: clear, warm, dry - Psychiatric Psychiatric: cooperative - Neurologic Neurologic: CNII-XII intact, no focal deficits, moves all extremities - Allied Health Allied health notes reviewed: nursing, PT, OT, social work - Constitutional Vitals: Temp Pulse Resp BP Pulse Ox 98.6 F 90 18 150/76 93 08/19/21 08:07 08/19/21 08:07 08/19/21 08:07 08/19/21 08:07 08/19/21 08:07 General appearance: Present: no acute distress, obese HEART Score - HEART Score Troponin: Troponin T 7.110 ng/mL (0.00-0.029) H* 08/16/21 04:51 Results - Labs CBC & Chem 7: 08/19/21 07:07 08/18/21 04:55 Labs: Laboratory Last Values WBC 7.2 K/mm3 (4.5-11.0) 08/19/21 07:07 RBC 3.79 M/mm3 (3.65-5.03) 08/19/21 07:07 Hgb 11.4 gm/dl (11.8-15.2) L 08/19/21 07:07 Hct 33.3 % (35.5-45.6) L 08/19/21 07:07 MCV 88 fl (84-94) 08/19/21 07:07 MCH 30 pg (28-32) 08/19/21 07:07 MCHC 34 % (32-34) 08/19/21 07:07 RDW 15.4 % (13.2-15.2) H 08/19/21 07:07 Plt Count 144 K/mm3 (140-440) 08/19/21 07:07 Lymph % (Auto) 29.5 % (13.4-35.0) 08/17/21 03:57 [place] % (Auto) 14.6 % (0.0-7.3) H 08/17/21 03:57 Eos % (Auto) 0.9 % (0.0-4.3) 08/17/21 03:57 Baso % (Auto) 0.6 % (0.0-1.8) 08/17/21 03:57 Lymph # (Auto) 2.8 K/mm3 (1.2-5.4) 08/17/21 03:57 [place] # (Auto) 1.4 K/mm3 (0.0-0.8) H 08/17/21 03:57 Eos # (Auto) 0.1 K/mm3 (0.0-0.4) 08/17/21 03:57 Baso # (Auto) 0.1 K/mm3 (0.0-0.1) 08/17/21 03:57 Add Manual Diff Complete 08/16/21 03:53 Total Counted 100 08/16/21 03:53 Seg Neutrophils % 54.4 % (40.0-70.0) 08/17/21 03:57 Seg Neuts % (Manual) 74.0 % (40.0-70.0) H 08/16/21 03:53 Band Neutrophils % 0 % 08/16/21 03:53 Lymphocytes % (Manual) 17.0 % (13.4-35.0) 08/16/21 03:53 Reactive Lymphs % (Man) 0 % 08/16/21 03:53 Monocytes % (Manual) 8.0 % (0.0-7.3) H 08/16/21 03:53 Eosinophils % (Manual) 1.0 % (0.0-4.3) 08/16/21 03:53 Basophils % (Manual) 0 % (0.0-1.8) 08/16/21 03:53 Metamyelocytes % 0 % 08/16/21 03:53 Myelocytes % 0 % 08/16/21 03:53 Promyelocytes % 0 % 08/16/21 03:53 Blast Cells % 0 % 08/16/21 03:53 Nucleated RBC % 1.0 % (0.0-0.9) H 08/16/21 03:53 Seg Neutrophils # 5.2 K/mm3 (1.8-7.7) 08/17/21 03:57 Seg Neutrophils # Man 8.2 K/mm3 (1.8-7.7) H 08/16/21 03:53 Band Neutrophils # 0.0 K/mm3 08/16/21 03:53 Lymphocytes # (Manual) 1.9 K/mm3 (1.2-5.4) 08/16/21 03:53 Abs React Lymphs (Man) 0.0 K/mm3 08/16/21 03:53 Monocytes # (Manual) 0.9 K/mm3 (0.0-0.8) H 08/16/21 03:53 Eosinophils # (Manual) 0.1 K/mm3 (0.0-0.4) 08/16/21 03:53 Basophils # (Manual) 0.0 K/mm3 (0.0-0.1) 08/16/21 03:53 Metamyelocytes # 0.0 K/mm3 08/16/21 03:53 Myelocytes # 0.0 K/mm3 08/16/21 03:53 Promyelocytes # 0.0 K/mm3 08/16/21 03:53 Blast Cells # 0.0 K/mm3 08/16/21 03:53 WBC Morphology Not Reportable 08/16/21 03:53 Hypersegmented Neuts Not Reportable 08/16/21 03:53 Hyposegmented Neuts Not Reportable 08/16/21 03:53 Hypogranular Neuts Not Reportable 08/16/21 03:53 Smudge Cells Not Reportable 08/16/21 03:53 Toxic Granulation Not Reportable 08/16/21 03:53 Toxic Vacuolation Not Reportable 08/16/21 03:53 Dohle Bodies Not Reportable 08/16/21 03:53 Pelger-Huet Anomaly Not Reportable 08/16/21 03:53 Anthony Rods Not Reportable 08/16/21 03:53 Platelet Estimate Consistent w auto 08/16/21 03:53 Clumped Platelets Not Reportable 08/16/21 03:53 Plt Clumps, EDTA Not Reportable 08/16/21 03:53 Large Platelets Not Reportable 08/16/21 03:53 Giant Platelets Not Reportable 08/16/21 03:53 Platelet Satelliting Not Reportable 08/16/21 03:53 Plt Morphology Comment Not Reportable 08/16/21 03:53 RBC Morphology Not Reportable 08/16/21 03:53 Dimorphic RBCs Not Reportable 08/16/21 03:53 Polychromasia Not Reportable 08/16/21 03:53 Hypochromasia Not Reportable 08/16/21 03:53 Poikilocytosis Not Reportable 08/16/21 03:53 Anisocytosis 1+ 08/16/21 03:53 Microcytosis Not Reportable 08/16/21 03:53 Macrocytosis Not Reportable 08/16/21 03:53 Spherocytes Not Reportable 08/16/21 03:53 Pappenheimer Bodies Not Reportable 08/16/21 03:53 Sickle Cells Not Reportable 08/16/21 03:53 Target Cells Not Reportable 08/16/21 03:53 Tear Drop Cells Not Reportable 08/16/21 03:53 Ovalocytes Not Reportable 08/16/21 03:53 Helmet Cells Not Reportable 08/16/21 03:53 [place] Bodies Not Reportable 08/16/21 03:53 [place] Rings Not Reportable 08/16/21 03:53 [place] Cells Not Reportable 08/16/21 03:53 Bite Cells Not Reportable 08/16/21 03:53 Crenated Cell Not Reportable 08/16/21 03:53 Elliptocytes Not Reportable 08/16/21 03:53 Acanthocytes (Spur) Not Reportable 08/16/21 03:53 Rouleaux Not Reportable 08/16/21 03:53 Hemoglobin C Crystals Not Reportable 08/16/21 03:53 Schistocytes Not Reportable 08/16/21 03:53 Malaria parasites Not Reportable 08/16/21 03:53 Tyson Bodies Not Reportable 08/16/21 03:53 Hem Pathologist Commnt No 08/16/21 03:53 PT 15.0 Sec. (12.2-14.9) H 08/17/21 13:30 INR 1.06 (0.87-1.13) 08/17/21 13:30 APTT 46.2 Sec. (24.2-36.6) H 08/17/21 13:30 Heparin Anti-Xa Level 0.27 U.I./ml (0.3-0.7) L 08/17/21 12:11 Sodium 139 mmol/L (137-145) 08/18/21 04:55 Potassium 3.6 mmol/L (3.6-5.0) 08/18/21 04:55 Chloride 104.9 mmol/L (98-107) 08/18/21 04:55 Carbon Dioxide 15 mmol/L (22-30) L 08/18/21 04:55 Anion Gap 23 mmol/L 08/18/21 04:55 BUN 36 mg/dL (9-20) H 08/18/21 04:55 Creatinine 1.4 mg/dL (0.8-1.3) H 08/18/21 04:55 Estimated GFR > 60 ml/min 08/18/21 04:55 BUN/Creatinine Ratio 26 % 08/18/21 04:55 Glucose 148 mg/dL (75-100) H 08/18/21 04:55 POC Glucose 128 mg/dL (70-105) H 08/18/21 21:00 Calcium 8.0 mg/dL (8.4-10.2) L 08/18/21 04:55 Phosphorus 2.50 mg/dL (2.5-4.5) 08/19/21 07:07 Magnesium 1.40 mg/dL (1.7-2.3) L 08/18/21 04:55 Total Bilirubin 0.60 mg/dL (0.1-1.2) 08/14/21 23:39 AST 70 units/L (5-40) H 08/14/21 23:39 ALT 43 units/L (7-56) 08/14/21 23:39 Alkaline Phosphatase 42 units/L (35-129) 08/14/21 23:39 Troponin T 7.110 ng/mL (0.00-0.029) H* 08/16/21 04:51 Total Protein 7.9 g/dL (6.3-8.2) 08/14/21 23:39 Albumin 4.4 g/dL (3.9-5) 08/14/21 23:39 Albumin/Globulin Ratio 1.3 % 08/14/21 23:39 Triglycerides 334 mg/dL (2-149) H 08/14/21 23:39 Cholesterol 224 mg/dL (50-199) H 08/14/21 23:39 LDL Cholesterol Direct 145 mg/dL (50-130) H 08/14/21 23:39 HDL Cholesterol 35 mg/dL (40-59) L 08/14/21 23:39 Cholesterol/HDL Ratio 6.40 % 08/14/21 23:39 Millard/IV: Voiding Method Toilet Active Medications - Current Medications Current Medications: Generic Name Dose Route Start Last Admin Trade Name Freq PRN Reason Stop Dose Admin Acetaminophen 650 mg 08/15/21 01:47 Acetaminophen 325 Mg Tab PO Q4H PRN Pain MILD(1-3)/Fever >100.5/FLORES Hydrocodone Bitart/Acetaminophen 1 each 08/15/21 12:40 08/18/21 21:02 Hydrocodone/Acetaminophen 5-325 Mg Tab PO 1 each Q4H PRN Administration Pain, Moderate (4-6) Albuterol 2.5 mg 08/15/21 12:00 Albuterol 2.5 Mg/3 Ml Nebu IH Q2HRT PRN Shortness Of Breath Albuterol/Ipratropium 1 ampul 08/16/21 08:00 08/18/21 21:32 Ipratropium/Albuterol Sulfate 3 Ml Ampul.Neb IH 1 ampul TIDRT ALEJANDRA Administration Alprazolam 0.5 mg 08/15/21 10:00 08/18/21 21:03 Alprazolam 0.5 Mg Tab PO 0.5 mg BID PRN Administration Anxiety Apixaban 5 mg 08/17/21 22:00 08/18/21 21:02 Apixaban 5 Mg Tab PO 5 mg Q12HR ALEJANDRA Administration Protocol Atorvastatin Calcium 40 mg 08/15/21 22:00 08/18/21 21:02 Atorvastatin 40 Mg Tab PO 40 mg QHS ALEJANDRA Administration Clopidogrel Bisulfate 75 mg 08/16/21 10:00 08/18/21 09:08 Clopidogrel 75 Mg Tab PO 75 mg QDAY ALEJANDRA Administration Cyclobenzaprine HCl 10 mg 08/15/21 09:30 08/16/21 17:00 Cyclobenzaprine 10 Mg Tab PO 10 mg TID PRN Administration Muscle Spasm Famotidine 20 mg 08/15/21 10:00 08/18/21 21:02 Famotidine 20 Mg Tab PO 20 mg BID ALEJANDRA Administration Fluticasone Propionate 100 mcg 08/15/21 10:00 08/18/21 09:07 Fluticasone Propionate Nasal [place] 16 Gm NS 100 mcg QDAY ALEJANDRA Administration Sodium Chloride 1,000 mls @ 75 mls/hr 08/16/21 13:00 08/17/21 19:58 Nacl 0.9% 1000 Ml IV 75 mls/hr DIRECT ALEJANDRA Administration Magnesium Hydroxide 30 ml 08/15/21 01:47 Magnesium Hydroxide (Mom) Oral Liqd Udc PO Q4H PRN Constipation Metoprolol Tartrate 25 mg 08/17/21 22:00 08/18/21 21:02 Metoprolol Tartrate 25 Mg Tab PO 25 mg BID ALEJANDRA Administration Morphine Sulfate 2 mg 08/15/21 01:47 08/18/21 09:08 Morphine 2 Mg/1 Ml Inj IV 2 mg Q4H PRN Administration Pain, Moderate (4-6) Morphine Sulfate 2 mg 08/15/21 01:47 08/16/21 22:12 Morphine 4 Mg/1 Ml Inj IV 2 mg Q5MIN PRN Administration Chest Pain unrelieved by NTG Ondansetron HCl 4 mg 08/15/21 01:47 Ondansetron 4 Mg/2 Ml Inj IV Q8H PRN Nausea And Vomiting Sodium Chloride 10 ml 08/15/21 10:00 08/18/21 21:03 Sodium Chloride 0.9% 10 Ml Flush Syringe IV 10 ml BID ALEJANDRA Administration Sodium Chloride 10 ml 08/15/21 01:47 Sodium Chloride 0.9% 10 Ml Flush Syringe IV PRN PRN LINE FLUSH
[2021-08-19] MEDS: FLUTICASONE PROPIONATE NASAL SPRAY 16 GM NS SCH (14:50)
== END 2021-08-19 14:50 | disposition home health service (06) | DRG 250 ==
LOC: ED 23:17 → 4A 08-15 01:48 → CC1 08-16 20:43 → 4A 08-18 01:19
PROVIDERS: ADMIT Internal Medicine Geriatric Medicine; ATTEND Internal Medicine
PROC: 02703ZZ Dilation of Coronary Artery, One Artery, Percutaneous Approach (ICD-10-PCS; principal; 2021-08-15)
PROC: 4A023N7 Measurement of Cardiac Sampling and Pressure, Left Heart, Percutaneous Approach (ICD-10-PCS; 2021-08-15)
PROC: B2111ZZ Fluoroscopy of Multiple Coronary Arteries using Low Osmolar Contrast (ICD-10-PCS; 2021-08-15)
PROC: B2151ZZ Fluoroscopy of Left Heart using Low Osmolar Contrast (ICD-10-PCS; 2021-08-15)
DX: I21.4 Non-ST elevation (NSTEMI) myocardial infarction (principal); J96.01 Acute respiratory failure with hypoxia; N17.0 Acute kidney failure with tubular necrosis; I25.10 Atherosclerotic heart disease of native coronary artery without angina pectoris; R94.31 Abnormal electrocardiogram [ECG] [EKG]; M19.90 Unspecified osteoarthritis, unspecified site; I10 Essential (primary) hypertension; J44.9 Chronic obstructive pulmonary disease, unspecified; Z88.0 Allergy status to penicillin; I48.91 Unspecified atrial fibrillation; I95.9 Hypotension, unspecified; E66.01 Morbid (severe) obesity due to excess calories; Z68.35 Body mass index [BMI] 35.0-35.9, adult; D69.6 Thrombocytopenia, unspecified
CPT/HCPCS: 36415; 71045; 80048; 80053; 80061; 82565; 82962; 83735; 84100; 84484; 85007; 85025; 85027; 85520; 85610; 85730; 92920; 93005; 93306; 93458; 94640; 94760; 99406; G0378; J1815; J3490; C1725; C1769; C1887; C1894; C8929; J1644; J2250; J2270; J3010; J7030; J7040; Q9967

== ENCOUNTER 2021-12-19 13:20 | Emergency (ER) | payer MEDICARE ==
[2021-12-19 13:56] VITALS: BP 152/69
--- NOTE | 2021-12-19 14:35 | Vascular Lab Report ---
DUPLEX DOPPLER LOWER EXTREMITY VEINS, RIGHT INDICATION / CLINICAL INFORMATION: leg pain with swelling. TECHNIQUE: Duplex doppler imaging was performed through the veins of the right lower extremity using venous comp ression and other maneuvers. COMPARISON: None available. FINDINGS: RIGHT COMMON FEMORAL VEIN: Negative. RIGHT FEMORAL VEIN: Negative. RIGHT POPLITEAL VEIN: Negative. RIGHT CALF VEINS: Negative. ADDITIONAL FINDINGS: None. IMPRESSION: 1. No sonographic evidence for DVT in the right lower extremity. Signer Name: Omar Mckinnon MD Signed: 12/19/2021 2:31 PM Workstation Name: [id number]
[2021-12-19 15:52] LABS: Hemoglobin 14.2 gm/dl (11.8-15.2); Mean Corpuscular HGB Conc 33 % (32-34); Mean Corpuscular Volume 82 fl (84-94); Platelet Count 194 K/mm3 (140-440); Red Blood Count 5.27 M/mm3 (3.65-5.03); Red Cell Distribution Width 17.3 % (13.2-15.2)
[2021-12-19 16:00] LABS: INR 0.94 (0.87-1.13); Partial Thromboplastin Time 28.9 Sec. (24.2-36.6)
[2021-12-19 16:02] LABS: BUN/Creatinine Ratio 20; Blood Urea Nitrogen 14 mg/dL (9-20); Calcium 9.7 mg/dL (8.4-10.2); Hemolysis Index 4
[2021-12-19 20:05] LABS: RBC Morphology Normal; Total Cells Counted 100
== END 2021-12-19 23:15 | disposition left against medical advice (07) ==
LOC: ED 13:20
DX: R22.41 Localized swelling, mass and lump, right lower limb (principal); R79.1 Abnormal coagulation profile; Z53.21 Procedure and treatment not carried out due to patient leaving prior to being seen by health care provider
CPT/HCPCS: 36415; 80048; 85007; 85025; 85610; 85730